=== PATIENT | female | born 1950 | race Caucasian/White ===

== ENCOUNTER 2017-10-22 13:48 | Inpatient (IN) | payer MEDICARE ==
[2017-10-22 14:28] LABS: Hematocrit 22.9 % (36.0-47.0); Mean Platelet Volume 6.2 fL (7.4-10.4); Red Blood Cell (RBC) Count 2.07 mill/uL (4.20-5.40); White Blood Cell (WBC) Count 9.8 thou/uL (4.8-10.8)
--- NOTE | 2017-10-22 14:35 | RAD ---
PORTABLE UPRIGHT FRONTAL CHEST RADIOGRAPH: Date: 10-22-17 Comparison: 12-18-16 History: Swelling. Peritoneal dialysis. FINDINGS: Heart and mediastinal contours are stable. No pneumothorax, pleural fluid, focal consolidation, or al veolar edema. IMPRESSION: Stable appearance of the chest. No acute findings. POS: [facility]
[2017-10-22 14:37] LABS: Lactic Acid - Sepsis 2.8 mmol/L (0.5-2.2)
[2017-10-22 14:39] LABS: ALT (SGPT) 142 U/L (8-55); AST (SGOT) 109 U/L (5-34); Alkaline Phosphatase 144 U/L (40-150); Anion Gap 17 mmol/L (10-20); BUN (Urea Nitrogen) 55 mg/dL (9.8-20.1); Bilirubin, Total 0.4 mg/dL (0.2-1.2); Calc. Creatinine Clearance 0 mL/min (70-130); Calcium 10.4 mg/dL (7.8-10.44); Carbon Dioxide 25 mmol/L (23-31); Chloride 94 mmol/L (98-107); Estimated GFR-MDRD 6; Globulin 3.4 g/dL (2.4-3.5); Protein, Total 6.5 g/dL (6.0-8.3)
[2017-10-22 14:39] LABS: Bilirubin Small (Negative); Blood, Urine Large (Negative); Glucose, Urine (Dipstick) 250 mg/dL (Negative); Ketone, Urine Negative (Negative); Nitrite Negative (Negative); Protein, Urine (Dipstick) 300 mg/dL (Neg-Trace); Urobilinogen 0.2 mg/dL (0.2-1.0)
[2017-10-22 14:41] LABS: Squamous Epithelial 0-3 HPF (0-3)
[2017-10-22 14:51] LABS: #Eosinphils 0.1 thou/uL (0.0-0.7); #Lymphocytes 0.6 thou/uL (1.20-3.40); #Monocytes 0.5 thou/uL (0.11-0.59); #Neutrophils 8.6 thou/uL (1.40-6.50); %Basophils 0.2 % (0.0-1.0); %Eosinophils 1.2 % (0.0-10.0); %Lymphocytes 5.8 % (21.0-51.0); %Monocytes 4.6 % (0.0-10.0); Anisocytosis SLIGHT = 6-15 cells (100X) (0-5/hpf); Hypochromia SLIGHT = 6-15 cells (100X) (0-5/hpf)
[2017-10-22 14:54] LABS: Bacteria/HPF 2+ HPF (None Seen); Hyaline Casts/LPF NONE SEEN LPF (0-3 Hyaline); Yeast-All Forms None Seen HPF (None Seen)
[2017-10-22 14:55] LABS: Transitional Epithelial 0-3 HPF (0-3)
[2017-10-22] MEDS ORDERED: Cefepime 2 GM/10 ML SYR ONE (14:57)
[2017-10-22] MEDS ORDERED: Acetaminophen 500 MG TAB ONE (15:41)
--- NOTE | 2017-10-22 16:40 | PDOC.EVN ---
Event Note - Event Note Event Note: Patient seen and examined. Note dictated. Full code. Makes her own decisions.
--- NOTE | 2017-10-22 17:00 | HP ---
DATE OF ADMISSION: 10/22/2017 PRIMARY CARE PHYSICIAN: Dr. Kaplan PRIMARY REGISTERED SAFETY ENGINEER: Dr. Briggs CHIEF COMPLAINT: Abdominal pain, nausea, and vomiting. HISTORY OF PRESENT ILLNESS: Patient is a 67-year-old female with end-stage renal disease on peritone al dialysis, hypertension, and diabetes mellitus type 2, presented to the emergency room with above c omplaints. Over the last 4-5 days, the patient has abdominal discomfort that is progressively gettin g worse. She also had nausea with intermittent vomiting. She also had fever of 102 earlier this wee k. Abdominal pain was generalized, 9/10, worse on movement. She is constipated and denies any diarr hea. No hematemesis, melena or heartburn reported. She denies any chest pain, shortness of breath o r palpitations. She also noticed her dialysate to be cloudy. In the emergency room, the initial vital signs showed temperature 100.8, respirations 20, pulse rate of 117 with a blood pressure 132/93 with O2 saturation 98% on room air. LABORATORY DATA AND X-RAY FINDINGS: Her CBC showed WBC 9.8 with left shift. Lactic acid was 2.8. U rinalysis showed greater than 50 WBCs with 2+ bacteria. Chest x-ray was negative for infiltrate. Te lemetry monitoring showed sinus tachycardia. She received vancomycin and cefepime along with Tylenol in the emergency room. Nephrology has been notified. PAST MEDICAL HISTORY: 1. Diabetes mellitus type 2. 2. Hypertension. 3. End-stage renal disease on peritoneal dialysis. 4. Degenerative joint disease. 5. Chronic anemia secondary to renal insufficiency. 6. Gout. 7. Dyslipidemia. 8. History of renal calculi. PAST SURGICAL HISTORY: 1. Multiple orthopedic surgeries. 2. Peritoneal dialysis access. 3. Bladder lift. 4. . 5. Hysterectomy. ALLERGIES: The patient is allergic to CODEINE, HYDROCODONE, and SULFA. CURRENT HOME MEDICATIONS: Unavailable at this time, patient does not remember any of her home medica tions. SOCIAL HISTORY: Patient currently lives at home with her family. Denies any smoking, alcohol or tj g use. FAMILY HISTORY: Positive for diabetes in several family members. REVIEW OF SYSTEMS: The following complete review of systems was negative, unless otherwise mentioned in the HPI or below: Constitutional: Weight loss or gain, ability to conduct usual activities. Skin: Rash, itching. Ey es: Double vision, pain. ENT/Mouth: Nose bleeding, neck stiffness, pain, tenderness. Cardiovascul ar: Palpitations, dyspnea on exertion, orthopnea. Respiratory: Shortness of breath, wheezing, coug h, hemoptysis, fever or night sweats. Gastrointestinal: Poor appetite, abdominal pain, heartburn, n ausea, vomiting, constipation, or diarrhea. Genitourinary: Urgency, frequency, dysuria, nocturia. Musculoskeletal: Pain, swelling. Neurologic/Psychiatric: Anxiety, depression. Allergy/Immunologic : Skin rash, bleeding tendency. PHYSICAL EXAMINATION: VITAL SIGNS: As discussed above. GENERAL: A 67-year-old female in mild distress due to abdominal discomfort. She is also somewhat sl eepy and slowly responding. HEENT: Head atraumatic, normocephalic. Sclerae anicteric. Moist mucous membranes. No oral lesion. NECK: Supple, no JVD appreciated. No carotid bruit. LUNGS: Clear to auscultation bilaterally. HEART: S1, S2 present. Tachycardic. No rubs or gallops appreciated. No heaves or pulsation. ABDO MEN: Soft, there is generalized tenderness on superficial palpation. No discharge around the dialys is catheter noted. There was voluntary guarding. There was no rigidity. There was no flank tendern ess. EXTREMITIES: Trace edema in bilateral lower extremities. SKIN: Warm and dry. LYMPH NODES: No palpable lymph nodes in the neck. PERIPHERAL VASCULAR: Radial pulses palpable bilaterally. MUSCULOSKELETAL: No joint swelling or tenderness. NEUROLOGIC: Grossly nonfocal. The patient is somewhat slow to respond. However, answers appropriat meagan. PSYCHIATRY: As discussed above. SKIN: Warm and dry. LYMPH NODES: No palpable lymph nodes in the neck. LABORATORY FINDINGS: As discussed above. Sodium was 132, potassium 4.1, chloride of 94, bicarbonate 25. Blood culture, urine cultures have been sent. Repeat lactic acid has been ordered. Telemetry monitoring by my review as discussed above. Chest x-ray by my review as discussed above. IMPRESSION AND PLAN: 1. Sepsis with an acute organ dysfunction secondary to peritoneal dialysis associated peritonitis. 2. End-stage renal disease on peritoneal dialysis. 3. Lactic acidosis. 4. Abnormal liver function tests, probably secondary to sepsis. 5. Anemia secondary to end-stage renal disease. 6. Diabetes mellitus type 2. 7. Hypertension. 8. Dyslipidemia. 9. Gout. 10. CODEINE, HYDROCODONE, and SULFA allergy. 11. Urinary tract infection. The patient will be monitored in the telemetry unit. We will continue empiric antibiotics. Nephrolo gy will be consulted. We will send cultures from the dialysis fluid. Urine cultures also has been s ent. We will resume home medications once confirmed. Gentle intravenous hydration. Plan of care was discussed with the patient. She stated understanding. The patient will require 2-3 days for stabilization.
[2017-10-22] MEDS ORDERED: Ondansetron ODT 4 MG TAB SL PRN (17:52)
[2017-10-22] MEDS ORDERED: Ondansetron HCl/PF 4 MG/2 ML Vial IVP PRN ×2 (17:52→17:55)
[2017-10-22] MEDS ORDERED: Vancomycin HCl 1 GM in Premix Bag 1 BAG IVPB SCH ×2 (17:55→18:15)
[2017-10-22] MEDS ORDERED: Acetaminophen 325 MG TAB PO PRN (17:55)
[2017-10-22] MEDS ORDERED: Ondansetron ODT 4 MG TAB PO PRN (17:55)
[2017-10-22] MEDS ORDERED: Dextrose 5% in Water 1,000 ML IV PRN (17:55)
[2017-10-22] MEDS ORDERED: Insulin Regular 300 UNITS/3 ML VIAL SC PRN ×2 (17:55)
[2017-10-22] MEDS ORDERED: Senokot 8.6 MG TAB PO PRN (17:55)
[2017-10-22] MEDS ORDERED: Calcium Carbonate 500 MG ChewTAB PO PRN (17:55)
[2017-10-22] MEDS ORDERED: Dextrose 50% Abboject 50 ML SYRINGE SLOW IVP PRN (17:55)
[2017-10-22] MEDS ORDERED: Nitroglycerin 0.4 MG TAB (25 Tab Bottle) PO PRN (17:55)
[2017-10-22] MEDS ORDERED: Vancomycin HCl 500 MG in Sodium Chloride 0.9% 100 ML IVPB SCH (18:15)
[2017-10-22] MEDS ORDERED: HOLD VANCOMYCIN FOR LEVEL >20 FS SCH (18:15)
[2017-10-22] MEDS ORDERED: Vancomycin HCl 750 MG in Sodium Chloride 0.9% 250 ML 250 ML IVPB SCH (18:15)
[2017-10-22] MEDS ORDERED: Vancomycin HCl 1.25 GM in Sodium Chloride 0.9% 250 ML 250 ML IVPB SCH (18:15)
[2017-10-22] MEDS ORDERED: traMADol HCl 50 MG TAB PO PRN (20:39)
[2017-10-22] MEDS ORDERED: NPH, Human Insulin Isophane 300 UNIT/3 ML VIAL SC SCH (21:00)
[2017-10-22] MEDS: Docusate 100 MG CAP PO SCH (21:49)
[2017-10-22] MEDS: Cefepime 1 GM in Sodium Chloride 0.9% 100 ML IVPB SCH (21:52)
[2017-10-22] MEDS: Atorvastatin Calcium 20 MG TAB PO SCH (21:52)
[2017-10-22] MEDS: Heparin 5,000 UNITS/ML VIAL SC SCH (21:52)
--- NOTE | 2017-10-23 05:52 | CON ---
DATE OF CONSULTATION: 10/22/2017 REASON FOR CONSULTATION: Stage 6 chronic kidney disease, on maintenance peritoneal dialysis. HISTORY OF PRESENT ILLNESS: This is a 67-year-old female who is basically showed up for abdominal pain and weakness, who was admitted for possible peritonitis. The patient has had no cell count down, but is having abdominal pain and weakness and had noticed her dialysis . PAST MEDICAL AND SURGICAL HISTORY: Significant for diabetes mellitus, hypertension, ESRD, degenerative joint disease, anemia, history of renal calculi , orthopedic surgery, PD dialysis catheter, bladder lift, and hysterectomy. HOME MEDICATIONS: List reviewed. ALLERGIES: Reviewed. FAMILY HISTORY: Negative for ESRD. REVIEW OF SYSTEMS: Fifteen-point review of systems was performed and negative except positives as noted above. GENERAL: Weakness-. HEAD: Headache-. NECK: No swelling or lumps. NOSE: No epistaxis or discharge. EYES: No diplopia or pain. RESPIRATORY: Dyspnea-. CARDIOVASCULAR: Chest pain-. GASTROINTESTINAL: Nausea-. /[employer]INTE[employer]NCE: Hematuria-. MUSCULOSKELETAL: No joint pain. NEUROPSYCHIATRIC SYSTEMS: No suicidal ideation. No ideation. SKIN: Denies any rash or ulcer. CONSTITUTIONAL: No fever or chills PHYSICAL EXAMINATION: GENERAL: Patient is awake and alert. VITAL SIGNS: Afebrile, pulse 118, breathing at 16 and blood pressure 147/64. HEAD/NECK: Normocephalic. Atraumatic. EYES: EOMI. No deformity. EARS: Clear. No ulcers. NOSE: Intact. No lesions. MOUTH: Clear. No discharge. THROAT: Clear. No exudate. LUNGS: Clear. No crackles. CARDIAC: S1, S2. No rub. ABDOMEN: Benign. BS+. GENITALIA/RECTUM: Rai absent. BACK/EXTREMITIES: Edema 0+. Ulcer-. NEUROLOGICAL: Alert and motor intact. SKIN: Rash-. Bruise-. LYMPHATICS: Edema-. Ulcer-. LABORATORY DATA: Showed a WBC of 9.8 and hemoglobin 9.2. Urinalysis showed multiple too numerous to count wbc's. PD Gram stain negative for bacteria, positive for WBC. ASSESSMENT AND RECOMMENDATIONS: 1. Stage 6 chronic kidney disease. Continue peritoneal dialysis. 2. Peritonitis versus urinary tract infection. We would recommend cell count as well as a urine culture and will treat as presumptive peritonitis and complicated urinary tract infection. 3. Anemia. We would recommend 1 unit of packed red blood cells. 4. Hypertension, stable. 5. Medications based on glomerular filtration rate are appropriate. I would recommend Infectious Disease consultation. MTDD
[2017-10-23 06:08] LABS: ALT (SGPT) 178 U/L (8-55); AST (SGOT) 158 U/L (5-34); Alkaline Phosphatase 130 U/L (40-150); Anion Gap 13 mmol/L (10-20); BUN (Urea Nitrogen) 51 mg/dL (9.8-20.1); Bilirubin, Total 0.4 mg/dL (0.2-1.2); Calc. Creatinine Clearance 11 mL/min (70-130); Calcium 9.4 mg/dL (7.8-10.44); Carbon Dioxide 27 mmol/L (23-31); Chloride 95 mmol/L (98-107); Estimated GFR-MDRD 7; Globulin 2.6 g/dL (2.4-3.5); Protein, Total 4.9 g/dL (6.0-8.3)
[2017-10-23 06:12] LABS: #Eosinphils 0.1 thou/uL (0.0-0.7); #Lymphocytes 0.5 thou/uL (1.20-3.40); #Monocytes 0.4 thou/uL (0.11-0.59); #Neutrophils 3.5 thou/uL (1.40-6.50); %Basophils 0.2 % (0.0-1.0); %Eosinophils 3.2 % (0.0-10.0); %Lymphocytes 10.5 % (21.0-51.0); %Monocytes 9.1 % (0.0-10.0); Hematocrit 17.3 % (36.0-47.0); Mean Platelet Volume 6.4 fL (7.4-10.4); Red Blood Cell (RBC) Count 1.58 mill/uL (4.20-5.40); White Blood Cell (WBC) Count 4.5 thou/uL (4.8-10.8)
[2017-10-23 08:01] LABS: BF Reference Range Comment Note:
[2017-10-23] MEDS ORDERED: Famotidine 20 MG TAB PO SCH (09:00)
[2017-10-23] MEDS ORDERED: NPH, Human Insulin Isophane 300 UNIT/3 ML VIAL SC SCH (09:00)
[2017-10-23] MEDS ORDERED: Allopurinol 300 MG TAB PO SCH (09:00)
[2017-10-23 09:39] LABS: BF Color Yellow
[2017-10-23 09:41] LABS: RBC Count-Automated 28000 /cumm
[2017-10-23] MEDS: Cefepime 1 GM in Sodium Chloride 0.9% 100 ML IVPB SCH ×2 (09:41→20:05)
[2017-10-23] MEDS: Sevelamer Carbonate 800 MG TAB PO SCH ×3 (09:42→16:40)
[2017-10-23] MEDS: Docusate 100 MG CAP PO SCH ×2 (09:42→20:06)
[2017-10-23] MEDS: Heparin 5,000 UNITS/ML VIAL SC SCH (09:43)
[2017-10-23] MEDS: Folic Acid/Vit B Comp W-C PO SCH (09:43)
[2017-10-23 10:29] LABS: Number Cells Counted-Fluids 100
[2017-10-23] MEDS ORDERED: Epoetin (ESRD) 20,000 UNITS/ML SC SCH (11:00)
[2017-10-23 12:06] LABS: Vancomycin, Random 14.4 ug/mL (See Comment)
[2017-10-23] MEDS ORDERED: Dextrose 50% Abboject 50 ML SYRINGE ONE (15:26)
--- NOTE | 2017-10-23 15:26 | PDOC.PN ---
- Subjective Encounter Start Date: 10/23/17 Encounter Start Time: 11:00 Patient seen and examined. No new complaints. No overnight events. Abd pain improving. No melena/hematochezia. - Objective Resuscitation Status: Resuscitation Status FULL:Full Resuscitation MAR Reviewed: Yes Vital Signs & Weight: Vital Signs (12 hours) Temp Pulse Resp BP Pulse Ox 10/23/17 12:25 98.6 F 71 18 140/65 96 10/23/17 08:00 98.6 F 71 18 135/63 94 L 10/23/17 04:00 98.2 F 80 18 100/50 L 95 Weight Weight 160 lb 9.6 oz I&O: 10/22/17 10/23/17 10/24/17 06:59 06:59 06:59 Intake Total 100 Output Total 1 Balance 99 Result Diagrams: 10/23/17 05:27 10/23/17 05:27 Additional Labs: Accuchecks 10/23/17 10/23/17 10/23/17 12:20 05:47 02:26 POC Glucose 53 L* 178 H 216 H 10/22/17 20:11 POC Glucose 340 H EKG Reviewed by me: Yes (Tele SR) Phys Exam - Physical Examination Constitutional: NAD Respiratory: no wheezing, no rales, no rhonchi, clear to auscultation bilateral Cardiovascular: RRR, no rub no heaves/pulsations Gastrointestinal: soft, no distention, positive bowel sounds mild gen tend, PD catheter Musculoskeletal: no edema Neurological: non-focal, normal sensation, moves all 4 limbs Psychiatric: normal affect, A&O x 3 Dx/Plan - Plan cont current plan of care, continue antibiotics, PT/OT, DVT proph w/SCDs IMPRESSION: 1. Sepsis with an acute organ dysfunction secondary to peritoneal dialysis associated peritonitis - Staph - on Atbx 2. End-stage renal disease on peritoneal dialysis. Nephro following 3. Lactic acidosis. prob due to sepsis 4. Abnormal liver function tests, probably secondary to sepsis. 5. Anemia secondary to end-stage renal disease. Jehovahs witness. Stool occult blood negative. 6. Diabetes mellitus type 2. on sliding scale. 7. Hypertension. 8. Dyslipidemia. 9. Gout. 10. CODEINE, HYDROCODONE, and SULFA allergy. 11. Urinary tract infection. PLAN: * Refuses blood. Understands the risk. Has seen Dr Martin recently - refused EGD * Will change diet to clear liqd * Consult ID * Cont Vanc/Cefepime * Cont sliding scale * Cont to monitor * Consult PT/OT * DC SQ Heparin due to Anemia * AM labs * Repeat Lactic acid in AM Review of Systems - Review of Systems Constitutional: negative: Fever, Chills, Sweats, Weakness, Malaise, Other Respiratory: negative: Cough, Dry, Shortness of Breath, Hemoptysis, SOB with Excertion, Pleuritic Pain, Sputum, Wheezing Cardiovascular: negative: Chest Pain, Palpitations, Orthopnea, Paroxysmal Noc. Dyspnea, Edema, Light Headedness - Medications/Allergies Allergies/Adverse Reactions: Allergies Allergy/AdvReac Type Severity Reaction Status Date / Time No Known Allergies Allergy Verified 10/23/17 07:12 Medications: Current Medications Acetaminophen (Tylenol) 650 mg PO Q4H PRN PRN Reason: Headache/Fever or Pain Allopurinol (Zyloprim) 100 mg PO DAILY [facility] Atorvastatin Calcium (Lipitor) 20 mg PO [facility] Last Admin: 10/22/17 21:52 Dose: 20 mg Calcium Carbonate (Tums) 1,000 mg PO Q4H PRN PRN Reason: Heartburn or Indigestion Dextrose/Water (Dextrose 50%) 25 gm SLOW IVP PRN PRN PRN Reason: Hypoglycemia Docusate Sodium (Colace) 100 mg PO BID [facility] Last Admin: 10/23/17 09:42 Dose: 100 mg Duloxetine HCl (Cymbalta) 30 mg PO DAILY [facility] Last Admin: 10/23/17 09:42 Dose: 30 mg Ferrous [facility]) [facility] Glucagon (Glucagon) 1 mg IM PRN PRN PRN Reason: Hypoglycemia Hydralazine HCl (Apresoline) 10 mg SLOW IVP Q4H PRN PRN Reason: SBP Greater Than 180 Cefepime HCl 1 gm/ Sodium (Chloride) 100 mls @ 200 mls/hr IVPB 0800,2000 [facility] Last Admin: 10/23/17 09:41 Dose: 100 mls Dextrose/Water (D5w) 1,000 mls @ 0 mls/hr IV .Q0M PRN; As Directed PRN Reason: Hypoglycemia Vancomycin HCl 1.25 gm/ Sodium (Chloride) 250 mls @ 166.667 mls/hr IVPB WILLCALL [facility] Vancomycin HCl 1 gm/ Device 200 mls @ 200 mls/hr IVPB [facility] Vancomycin HCl 750 mg/ Sodium (Chloride) 250 mls @ 250 mls/hr IVPB [facility] Vancomycin HCl 500 mg/ Sodium (Chloride) 100 mls @ 100 mls/hr IVPB [facility] Insulin Human Regular (Humulin R) 0 units SC .MILD SLIDING SCALE PRN PRN Reason: Mild Correctional Scale Insulin Human Regular (Humulin R) 0 units SC .BEDTIME SLIDING SC PRN PRN Reason: Bedtime Correctional Scale Labetalol HCl (Normodyne) 10 mg SLOW IVP Q4H PRN PRN Reason: Systolic BP > 180 Miscellaneous Medication (Pharmacy To Dose) 1 each IVPB ONE PRN PRN Reason: Pharmacy to dose Stop: 11/21/17 17:56 Nitroglycerin (Nitrostat) 0.4 mg PO Q5MIN PRN PRN Reason: Chest Pain Hold Vancomycin For (Level >20) 0 each FS .AT DIALYSIS [facility] Ondansetron HCl (Zofran Odt) 4 mg PO Q6H PRN PRN Reason: Nausea/Vomiting Ondansetron HCl (Zofran) 4 mg IVP Q6H PRN PRN Reason: Nausea/Vomiting Senna (Senokot) 2 tab PO HSPRN PRN PRN Reason: Constipation Sevelamer Carbonate (Renvela) 1,600 mg PO TID-[facility] Last Admin: 10/23/17 12:16 Dose: 1,600 mg Tramadol HCl (Ultram) 50 mg PO Q6H PRN PRN Reason: Moderate Pain (4-6) Vitamin B Complex/Vit C/Folic Acid (Nephro-Kwan Tablet) 1 tab PO DAILY [facility] Last Admin: 10/23/17 09:43 Dose: 1 tab
[2017-10-23] MEDS ORDERED: Dextrose 5 % And 0.9 % NaCl 1,000 ML IV SCH (16:00)
[2017-10-23] MEDS: Ferrous Sulfate 325 MG TAB PO SCH (16:40)
--- NOTE | 2017-10-23 17:36 | PRG ---
DATE OF SERVICE: 10/23/2017 SUBJECTIVE: This is a 67-year-old female, being seen for end-stage renal disease. Patient denies an y nausea, vomiting, or chest pain. OBJECTIVE: See above. GENERAL: Awake, alert, in no acute distress. VITAL SIGNS: Afebrile, pulse 84, breathing at 16, blood pressure 135/62. GENERAL APPEARANCE AND MENTAL STATUS: Fair. HEAD/NECK: Normocephalic. Atraumatic. EYES: EOMI. No deformity. EARS: Clear. No ulcers. NOSE: Intact. No lesions. MOUTH: Clear. No discharge. THROAT: Clear. No exudate. LUNGS: Clear. No crackles. CARDIAC: S1, S2. No rub. ABDOMEN: Benign. BS+. GENITALIA/RECTUM: Rai absent. BACK/EXTREMITIES: Edema 0+ ulcer. NEUROLOGICAL: Alert and motor intact. SKIN: Rash - bruise. LYMPHATICS: Edema - ulcer. LABORATORY DATA: Labs show hemoglobin 5.3. ASSESSMENT AND RECOMMENDATIONS: 1. Stage 6 chronic kidney disease. peritonitis. We will give vancomycin during peritoneal di alysis. 2. Anemia. I would recommend transfusion. The patient told me that she is [employer], so woods s refused transfusion. 3. Hypertension, stable. 4. Sepsis. I would recommend Infectious Disease consultation.
[2017-10-23] MEDS: Atorvastatin Calcium 20 MG TAB PO SCH (20:05)
[2017-10-24 05:36] LABS: Hematocrit 19.8 % (36.0-47.0)
[2017-10-24] MEDS: Ferrous Sulfate 325 MG TAB PO SCH ×3 (08:46→17:15)
[2017-10-24] MEDS: Allopurinol 100 MG TAB PO SCH (08:46)
[2017-10-24] MEDS: Docusate 100 MG CAP PO SCH ×2 (08:46→21:15)
[2017-10-24] MEDS: Folic Acid/Vit B Comp W-C PO SCH (08:46)
[2017-10-24] MEDS: Sevelamer Carbonate 800 MG TAB PO SCH ×3 (08:53→16:21)
[2017-10-24 09:25] LABS: Vancomycin, Random 22.3 ug/mL (See Comment)
[2017-10-24] MEDS: Cefepime 1 GM in Sodium Chloride 0.9% 100 ML IVPB SCH (10:06)
--- NOTE | 2017-10-24 11:55 | PRG ---
DATE OF SERVICE: 10/24/2017 SUBJECTIVE: This is a 67-year-old female being seen for end-stage renal disease. The patient denies any nausea, vomiting or chest pain. PHYSICAL EXAMINATION: GENERAL: Patient is awake, alert. VITAL SIGNS: Afebrile, pulse 78, breathing 16, blood pressure 149/73. HEAD/NECK: Normocephalic. Atraumatic. EYES: EOMI. No deformity. EARS: Clear. No ulcers. NOSE: Intact. No lesions. MOUTH: Clear. No discharge. THROAT: Clear. No exudate. LUNGS: Clear. No crackles. CARDIAC: S1, S2. No rub. ABDOMEN: Benign. BS+. GENITALIA/RECTUM: Rai absent. BACK/EXTREMITIES: Edema 0+ Ulcer- NEUROLOGICAL: Alert and motor intact. SKIN: Rash- Bruise- LYMPHATICS: Edema- Ulcer- LABORATORY DATA: Show hemoglobin 6.9. ASSESSMENT AND RECOMMENDATIONS: 1. Stage 6 chronic kidney disease. Continue peritoneal dialysis. 2. Peritonitis management per Infectious Disease. 3. Anemia, diffuse transfusion. Continue Epogen. 4. Peritonitis, on vancomycin IV. 5. Sliding scale per primary team.
--- NOTE | 2017-10-24 12:32 | PRG ---
DATE OF SERVICE: 10/24/2017 SUBJECTIVE: The patient was seen and examined at bedside. She is slightly drowsy, she keeps her eye s closed during my visit. She states that her mouth is quite dry, but that is most of the time even before this hospitalization. She does not know what is the reason. She tolerates clear liquids well without any vomiting. OBJECTIVE: VITAL SIGNS: Blood pressure is 149/73, temperature is 98.6, pulse is 78, respiratory rate is 20, O2 saturation is 94% on room air. SKIN: Her skin is pale. HEENT: Conjunctivae pale. Pupils responding to light properly. Oral mucosa is dry. NECK: Supple. LUNGS: Clear. HEART: S1, S2 normal. No S3, no S4. ABDOMEN: Tender to palpation, superficial. Bowel sounds are present. EXTREMITIES: 1+ peripheral edema, symmetric bilaterally. NEUROLOGIC: She follows my commands, she knows that she is at [facility]. She does not know the monique e and month. She knows where she lives and she is expecting her to come and see her in the h ospital this morning. LABORATORY: Showed vancomycin level 22.3, hemoglobin 6.3, hematocrit 19.8, and platelet count is 299 . Glucose is 160. Lactic acid is 1.8. Microbiology is growing Enterococcus in urine, 25-50,000 and Staphylococcus aureus in peritoneal fluid culture, susceptibility to follow. Blood cultures are neg ative x2. IMPRESSION: 1. Acute Staphylococcal peritonitis secondary to most likely peritoneal dialysis. 2. Sepsis with negative blood cultures so far. 3. Lactic acidosis, resolved. 4. Anemia secondary to end-stage renal disease. The patient was offered blood transfusion, but she refused it since she is a [employer]. Her fecal occult blood test was negative. 5. Diabetes mellitus type 2, controlled. 6. Hypertension, controlled. 7. Dyslipidemia. 8. Gout. 9. Urine culture positive for Enterococcus 25-50,000 colonies. PLAN: The patient refused blood transfusion. Her hemoglobin is slightly better this morning, it is about 5. Actually she states that she feels better today than yesterday. She did not have any nause a or vomiting on clear liquids. I am going to give her some full liquid diet and see how she tolerat es that. We continue her vancomycin and cefepime for now. Will have Dr. Lisa to evaluate the patie nt for ID. We will continue close monitoring. We will continue PT and OT. I am going to order morn ing labs.
--- NOTE | 2017-10-24 13:43 | CON ---
DATE OF CONSULTATION: 10/24/2017 REASON FOR CONSULTATION: CAPD associated peritonitis. HISTORY OF PRESENT ILLNESS: A 67-year-old patient who has a history of type 2 diabetes with end-stag e renal disease and gout undergoing peritoneal dialysis since 2014. I had seen her in 10/2015 when s he presented with peritonitis. Unfortunately, cultures had not been submitted prior to the administr ation of antimicrobials, though the 1 sample submitted in the hospital setting was negative. In 12/02 017 the patient was admitted with a left intertrochanteric femur fracture and underwent a nail insert ion. This time she presents with abdominal pain, nausea, and vomiting, and fever. Pain was generali zed. She denied any headaches, no change in visual symptoms, sore throat, odynophagia, dysphagia. N o respiratory symptoms, no chest pain, no genitourinary symptoms, no joint symptoms. PAST MEDICAL HISTORY: Type 2 diabetes, hypertension, end-stage renal disease. She does have multipl e cysts in a previous imaging study which were somewhat suggestive of PKD, peritoneal dialysis since 2014 and 1 prior episode of peritonitis with negative cultures at that time, gout, and nephrolithiasi s. PAST SURGICAL HISTORY: Orthopedic procedures including pinning of the left hip fracture, peritoneal dialysis access placement, bladder lift, , hysterectomy. ALLERGIES: CODEINE, HYDROCODONE, SULFA DRUGS. SOCIAL HISTORY: Living at home. Never a smoker. FAMILY HISTORY: Diabetes type 2. CURRENT MEDICATIONS: Zyloprim, Lipitor, Tums, cefepime, dextrose, Cymbalta, Feosol, Humulin, Senokot , vancomycin. PHYSICAL EXAMINATION: VITAL SIGNS: T-max 99, currently 98.8, blood pressure 160/73, pulse 92, respirations 18, O2 sat 94%. GENERAL: She is a little bit encephalopathic. She is arousable. She knows her name and knew she wa s in the hospital and the correct name the hospital, but gave me the wrong date. Follows commands wi th some assistance. SKIN: She has a stage I-II pressure area in the presacral region, mostly erythema only. No Rai ca theter. She has a peripheral IV access. PD catheter exit site in the left lower quadrant with no ev idence of inflammatory changes. No lymphadenopathy. HEENT: Ocular movements are conjugate. Oral cavity with no remaining red cliff teeth. Oral mucosa nor mal. NECK: Supple, no jugular venous distention. LUNGS: With symmetric clear breath sounds. HEART: S1, S2, regular rate. Soft aortic murmur. ABDOMEN: Flat, soft. Not tender, not distended. No bladder distention. EXTREMITIES: No joint inflammatory activity. Pulses are 1+ in dorsalis pedis. NEUROLOGIC: Plantar responses are flexor. Trace edema lower extremities. She is drowsy, arousable, but and follow commands with insistence, a little bit disoriented. She has some degree of hypoactiv e delirium. LABORATORY DATA: White cell count 9.8 and 4.5, hemoglobin 7.2 and 5.3, platelets 361. Chemistry wit h sodium 132, potassium 3.4, creatinine 5.85. Lactic acid 1.8, AST 158, ALT 178, alkaline phosphatas e 130, bilirubin 0.4, albumin 2.3. Peritoneal dialysis fluid with 25,000 WBCs and a predominance of mature neutrophils. Cultures from the peritoneal dialysis with Staphylococcus aureus which is methic illin sensitive, by phenotype testing. ASSESSMENT: 1. Diabetes type 2. 2. Multiple kidney cysts. 3. Prior episode of peritonitis about 2 years ago, treated successfully. 4. 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 DISCUSSION: At this point, there is no evidence of tunnel infection, failure of conservative managem ent of Staphylococcal aureus CAPD peritonitis is higher than with other pathogens, but I think we misty uld continue with conservative management. Would recommend vancomycin which would allow less frequen t administrations of the treatment. An alternate approach would be cefazolin. The dosing for interm ittent administration of cefazolin through the peritoneal dialysis fluid is 15-20 mg/kg daily given i ntermittently at each dwell, the dose for vancomycin is 15-30 mg/kg every 5-7 days. Evidently the va ncomycin administration schedule would be simpler since it would require less frequent mixing of the antimicrobial with the PD dwell. I would in addition to that recommend rifampin orally 300 mg twice daily during the course of therapy. Duration of therapy would be 21 days. If after that there is re currence or persistence of the CAPD associated peritonitis, then she would require removal of the cat heter.
[2017-10-24] MEDS ORDERED: Primidone 50 MG TAB PO SCH (21:00)
[2017-10-24] MEDS: Atorvastatin Calcium 20 MG TAB PO SCH (21:14)
[2017-10-24] MEDS: Cefepime 1 GM, Admixture Fee 1 EACH in Sterile Water 10 ML SLOW IVP SCH (21:15)
[2017-10-24] MEDS: Rifampin 300 MG CAP PO SCH (21:21)
[2017-10-25] MEDS: Cefepime 1 GM in Sodium Chloride 0.9% 100 ML IVPB SCH (06:31)
[2017-10-25 08:50] LABS: Vancomycin, Random 19.9 ug/mL (See Comment)
[2017-10-25] MEDS: Sevelamer Carbonate 800 MG TAB PO SCH ×4 (09:15→18:51)
[2017-10-25] MEDS: Cefepime 1 GM, Admixture Fee 1 EACH in Sterile Water 10 ML SLOW IVP SCH ×2 (09:52→22:33)
[2017-10-25 10:51] LABS: Anion Gap 14 mmol/L (10-20); BUN (Urea Nitrogen) 47 mg/dL (9.8-20.1); Calc. Creatinine Clearance 10 mL/min (70-130); Calcium 9.2 mg/dL (7.8-10.44); Carbon Dioxide 26 mmol/L (23-31); Chloride 96 mmol/L (98-107); Estimated GFR-MDRD 6
[2017-10-25] MEDS: Sodium Chloride 0.9% 1,000 ML IV SCH (11:23)
[2017-10-25] MEDS: Folic Acid/Vit B Comp W-C PO SCH ×2 (11:26→12:27)
[2017-10-25] MEDS: Docusate 100 MG CAP PO SCH ×3 (11:26→21:45)
[2017-10-25] MEDS: Ferrous Sulfate 325 MG TAB PO SCH ×3 (11:26→18:50)
[2017-10-25] MEDS: Allopurinol 100 MG TAB PO SCH ×2 (11:26→12:27)
[2017-10-25] MEDS: Rifampin 300 MG CAP PO SCH ×3 (11:27→21:45)
--- NOTE | 2017-10-25 13:58 | PRG ---
DATE OF SERVICE: 10/25/2017 SUBJECTIVE: The patient is seen and examined at the bedside. She is very drowsy. She is arousable, but she falls asleep very quickly soon after she opens her eyes when awake. She is not able to tell me where she lives and where she is now. She tries to follow commands, but drowsiness is affecting her movement and she falls asleep quickly. OBJECTIVE: SKIN: Pale. HEENT: Conjunctivae is pale. Pupils in the midline about 3 mm in size, similar bilaterally with ilene e good response to light. NECK: Supple. LUNGS: Clear. HEART: S1, S2 normal, no S3, no S4, no murmur. ABDOMEN: Soft but it is somewhat tender to palpation all over. No guarding. No masses. EXTREMITIES: No clubbing, cyanosis, or edema. NEUROLOGIC: As I mentioned above, she is drowsy. She is arousable, but falls asleep quickly. She m oves 4 extremities. Her Babinski sign on both lower extremities is negative. LABORATORY DATA: Showed a random vancomycin level 19.9, glycemia is ranging from 80-142. Microbiolo gy: Staphylococcus aureus, methicillin sensitive in peritoneal fluid and Enterococcus, 25,000-50,000 colonies in the urine. Blood cultures negative x48 hours. IMPRESSION: 1. Acute staphylococcal peritonitis secondary to peritoneal dialysis. Most likely, the patient was seen by Dr. Lisa for Infectious Disease evaluation. He recommends vancomycin or cephalosporin for t his methicillin-sensitive Staphylococcus aureus infection. 2. Sepsis with negative blood cultures. 3. Lactic acidosis, resolved. 4. Anemia secondary to end-stage renal disease. The patient was offered blood transfusion, but she is a Taoism and she refused that. Fecal occult blood test was negative. 5. Diabetes mellitus type 2, well controlled. 6. Hypertension, controlled. 7. Dyslipidemia. 8. Drowsiness. I am going to check her primidone and phenobarbital levels and I am holding her prim idone for now, most likely this is related to the medications and her encephalopathy. 9. Gout. 10. Urine culture positive for Enterococcus 25,000-50,000 colonies PLAN: According to Dr. Lisa' recommendation, we will keep her on vancomycin for now. Rifampicin 30 0 mg twice a day was added and duration of therapy is supposed to be 21 days. We will start physical therapy as soon as her mentation is better and cefepime could not be stopped.
--- NOTE | 2017-10-25 14:13 | PRG ---
DATE OF SERVICE: 10/25/2017 SUBJECTIVE: A 67-year-old female being seen for end-stage renal disease. The patient tolerated PD well. Denies any nausea, vomiting, or chest pain. PHYSICAL EXAMINATION: GENERAL: Patient is awake, alert. VITAL SIGNS: Afebrile, pulse 93, breathing at 16, blood pressure 159/96. HEAD/NECK: Normocephalic. Atraumatic. EYES: EOMI. No deformity. EARS: Clear. No ulcers. NOSE: Intact. No lesions. MOUTH: Clear. No discharge. THROAT: Clear. No exudate. LUNGS: Clear. No crackles. CARDIAC: S1, S2. No rub. ABDOMEN: Benign. BS+. GENITALIA/RECTUM: Rai absent. BACK/EXTREMITIES: Edema 0+ Ulcer- NEUROLOGICAL: Alert and motor intact. SKIN: Rash- Bruise- LYMPHATICS: Edema- Ulcer- LABORATORY DATA: None. ASSESSMENT AND RECOMMENDATIONS: 1. Stage 6 chronic kidney disease. Continue peritoneal dialysis. 2. Hypertension, stable. 3. Anemia, stable. 4. Medications based on glomerular filtration rate are appropriate. MTDD
--- NOTE | 2017-10-25 15:35 | CT ---
HEAD CT WITHOUT CONTRAST: DATE: 10/25/17. COMPARISON: None. HISTORY: Altered mental status, extreme drowsiness. TECHNIQUE: Serial axial CT imaging is obtained at 5 mm intervals from the vertex through the skull base. FINDINGS: There is a focal area of cortical and subcortical white matter hypodensity in the right frontal regio n at the axial level of the lateral ventricles on image 21, measuring up to 2.8 cm. This suggests ag e-indeterminate ischemia. There is moderate diffuse cerebral volume loss. There is no midline shift /mass effect or evidence of intracranial hemorrhage. Imaged paranasal sinuses and mastoid air cells appear grossly unremarkable. No displaced calvarial f racture. There is atherosclerotic calcification of the cavernous carotid arteries. IMPRESSION: Focal area of nonspecific cortical and subcortical white matter hypodensity in the frontal lobe on th e right. Recommend MRI of the brain with and without contrast to evaluate for associated infarction and/or underlying brain lesion. CODE T POS: DELMAR
--- NOTE | 2017-10-25 21:36 | PDOC.EVN ---
Event Note - Event Note Event Note: called regarding pts decreased LOC and rifampin being held. Pt still on Vanc. On review, pt had a reactive urine now growing VRE and GNR yet to be identified. Added Zyvox and Cefepime at renal dosing.
[2017-10-25] MEDS: Atorvastatin Calcium 20 MG TAB PO SCH (21:44)
[2017-10-25] MEDS ORDERED: Cefepime 1 GM in Sodium Chloride 0.9% 100 ML IVPB SCH (21:45)
[2017-10-25] MEDS: Linezolid 600 MG in Premix Bag 1 BAG IVPB SCH (22:33)
[2017-10-26] MEDS: Sodium Chloride 0.9% 1,000 ML IV SCH ×3 (01:05→18:30)
[2017-10-26] MEDS: hydrALAZINE 20 MG/ML VIAL SLOW IVP PRN (01:06)
[2017-10-26 07:50] LABS: #Eosinphils 0.3 thou/uL (0.0-0.7); #Lymphocytes 0.6 thou/uL (1.20-3.40); #Monocytes 0.4 thou/uL (0.11-0.59); #Neutrophils 6.4 thou/uL (1.40-6.50); %Basophils 0.5 % (0.0-1.0); %Eosinophils 4.1 % (0.0-10.0); %Lymphocytes 7.9 % (21.0-51.0); %Monocytes 5.1 % (0.0-10.0); Hematocrit 21.2 % (36.0-47.0); Mean Platelet Volume 5.8 fL (7.4-10.4); Red Blood Cell (RBC) Count 1.96 mill/uL (4.20-5.40); White Blood Cell (WBC) Count 7.8 thou/uL (4.8-10.8)
[2017-10-26 08:07] LABS: Anion Gap 12 mmol/L (10-20); BUN (Urea Nitrogen) 40 mg/dL (9.8-20.1); Calc. Creatinine Clearance 10 mL/min (70-130); Calcium 8.8 mg/dL (7.8-10.44); Carbon Dioxide 27 mmol/L (23-31); Chloride 99 mmol/L (98-107); Estimated GFR-MDRD 7
[2017-10-26] MEDS ORDERED: Potassium Chloride 20 MEQ/100 ML PREMIX BAG IVPB SCH (08:30)
[2017-10-26 10:13] LABS: Oxyhemoglobin 96.4 % (94.0-97.0); Sodium 134 mmol/L (135-148)
[2017-10-26 10:18] LABS: Mode ROOM AIR; Modified Allen's Test NOT DONE; Vent NO
[2017-10-26] MEDS: Ferrous Sulfate 325 MG TAB PO SCH ×2 (10:18→18:22)
[2017-10-26] MEDS: Sevelamer Carbonate 800 MG TAB PO SCH ×3 (10:18→18:22)
[2017-10-26] MEDS: Allopurinol 100 MG TAB PO SCH (10:19)
[2017-10-26] MEDS: Docusate 100 MG CAP PO SCH ×2 (10:19→20:42)
[2017-10-26] MEDS: Folic Acid/Vit B Comp W-C PO SCH (10:19)
[2017-10-26] MEDS: Rifampin 300 MG CAP PO SCH ×2 (10:20→20:45)
[2017-10-26] MEDS: Linezolid 600 MG in Premix Bag 1 BAG IVPB SCH ×2 (10:29→22:39)
--- NOTE | 2017-10-26 12:59 | PRG ---
DATE OF SERVICE: 10/26/2017 SUBJECTIVE: This is a 67-year-old female being seen for end-stage renal disease. The patient is liene nolent but cannot obey simple commands. PHYSICAL EXAMINATION: GENERAL: Patient is resting. VITAL SIGNS: Temperature 99.2, pulse 92, breathing at 16, blood pressure 143/94. GENERAL APPEARANCE AND MENTAL STATUS: Fair. HEAD/NECK: Normocephalic. Atraumatic. EYES: EOMI. No deformity. EARS: Clear. No ulcers. NOSE: Intact. No lesions. MOUTH: Clear. No discharge. THROAT: Clear. No exudate. LUNGS: Clear. No crackles. CARDIAC: S1, S2. No rub. ABDOMEN: Benign. BS+ GENITALIA/RECTUM: Rai absent. BACK/EXTREMITIES: Edema 0+ Ulcer- NEUROLOGICAL: The patient does not awake. SKIN: Rash- Bruise- LYMPHATICS: Edema- Ulcer- LABORATORY DATA: Hemoglobin is 6.7. ASSESSMENT AND RECOMMENDATIONS: 1. Stage 6 chronic kidney disease. Continue hemodialysis. 2. Hypertension, stable. 3. Anemia, refused transfusion. 4. Hypokalemia. Recommend 20 mEq potassium and recheck potassium again today.
--- NOTE | 2017-10-26 13:24 | PRG ---
DATE OF SERVICE: 10/26/2017 SUBJECTIVE: The patient is seen and examined at the bedside. She is very drowsy, responding to pain ful stimuli. Occasionally, she opens her eyes, but she falls asleep very quickly. Her mental condit ion is worse than she was yesterday and I just talked to her who decided to make her DNR sinc e she has multiple medical problems and now she has overwhelming infection. OBJECTIVE: VITAL SIGNS: Blood pressure is 154/74, pulse is 92, and temperature is 99.1, this is the maximal tem perature, pulse oximetry is 94%, respiratory rate is 20 respirations per minute. HEENT: Her oral mucosa is somewhat dry. NECK: Supple. LUNGS: Clear. HEART: S1, S2 normal, no S3, no S4. ABDOMEN: Soft, mildly tender to deeper palpation. Bowel sounds are present. No organomegaly. EXTREMITIES: 1+ peripheral edema similar bilaterally. NEUROLOGIC: Patient is in deep coma, she responds to painful stimuli. Occasionally, she opens her e yes, but she falls asleep very quickly. She has myoclonic jerks in the upper extremities, but that i s nothing new. According to her , she had this for a long time. SKIN: She has several ecchymoses on both forearms. LABORATORY DATA: White count of 7.8, hemoglobin 6.7, hematocrit 21.2, and platelet count is 297. Ch emistry: Sodium of 135, potassium 2.9, chloride 99, CO2 27, BUN 40, creatinine 6.33, glucose is rang ing from 94-191. Magnesium is 1.5. ABG showed pH of 7.55, pCO2 of 28.9, pO2 87.1. A-a gradient is 27. Ionized calcium 1.2 and this is on room air. The CT of the brain was done yesterday, which show ed focal area of nonspecific cortical and subcortical white matter hypodensity in the frontal lobe on the right. Microbiology: Her urine culture is growing vancomycin-resistant Enterococcus 25,000 col onies to 50,000 colonies and gram negative rods, less than 5000 colonies. Vancomycin-resistant Enter ococcus is sensitive to linezolid and imipenem along with nitrofurantoin, ampicillin and piperacillin . Blood cultures are negative since the at the time of collection and peritoneal fluid culture Staphylococcus aureus sensitive to multiple antibiotics except for amoxicillin, azithromycin, and cla rithromycin and piperacillin. Fecal occult blood test negative. IMPRESSION: 1. Acute Staphylococcal Peritonitis secondary to peritoneal dialysis catheter, most likely. The pat ient was seen by Dr. Lisa, who recommended vancomycin and rifampin, but because of new findings on u rinalysis and urine culture which is growing vancomycin-resistant enterococcus, vancomycin was stoppe d and the Zyvox was started along with cefepime. 2. Sepsis with negative blood cultures. 3. Lactic acidosis, resolved. 4. Deep coma, the patient was seen by neurologist who recommends to check cortisol, TSH and free T4. The patient had CT of the brain done yesterday which showed a suspicious area of cortical and subco rtical white matter hypodensity in the frontal lobe on the right. MRI was recommended by radiologist . We are waiting for the full official report of Dr. Enriquez and Neurology evaluation which was don e this morning. 5. Hypokalemia. Would replace her with 10 mEq of KCl. 6. Anemia secondary to end-stage renal disease, managed with Epogen 20,000 units every 2 weeks and I believe that information is from her . Fecal occult blood test was negative. 7. Diabetes mellitus type 2, well controlled. 8. Hypertension, controlled. 9. Dyslipidemia. 10. History of gout. PLAN: To change her code status to do not resuscitate after talking to her who wishes to eriberto nge her to that. We will continue her side Zyvox and rifampin and cefepime. We will continue suppor tive care, but she will be moved to intermediate care unit. I will obtain EEG to rule out seizures. We will give her 20,000 units of Epogen if this is approved by Dr. Subramanian, her repulping supervisor, and would replace her potassium with 10 mEq of .
--- NOTE | 2017-10-26 14:24 | CON ---
DATE OF CONSULTATION: 10/26/2017 CONSULTING PHYSICIAN: Hospitalist Service. IMPRESSION: 1. Toxic-metabolic encephalopathy. Rule out subclinical seizure activity. 2. Right frontal chronic cerebral infarct. 3. Renal failure. 4. Diabetes. 5. Peritonitis. PLAN: 1. Check T4, cortisol and ammonia level. 2. EEG. 3. Continue supportive measures. HISTORY OF PRESENT ILLNESS: Ms. Traore is a 67-year-old white female who came in with probable periton itis. She had been on some antibiotics prior to admission, which complicated her management. She woods s had some persistent encephalopathy. Her CAT scan of the brain shows an area of chronic infarction in the right frontal lobe. There is some generalized cerebral atrophy. Laboratory studies were revi ewed. She has been cardiovascularly stable. I was called to give neurologic opinion. PAST MEDICAL HISTORY: As listed above. SOCIAL HISTORY: No drug use known. FAMILY HISTORY: Not obtainable. REVIEW OF SYSTEMS: Not obtainable. PHYSICAL EXAMINATION: GENERAL: Overweight, elderly lady, lying in bed quietly. HEENT: Pupils are 4 mm and reactive. Conjunctivae clear. Oropharynx is moist. NECK: Supple. EXTREMITIES: No rash noted. NEUROLOGIC: She would occasionally moan to stimulation, but I could not get her to follow any comman ds. She generally kept her eyes closed. She would resist eye opening to some degree. Her face appe ared to be symmetric. Tone appeared to be symmetric. She had some irregular body twitching and jerk ing seen bilaterally. Plantar response was upgoing on the left, equivocal on the right. CT was reviewed. SUMMARY: This is an elderly woman with ongoing infectious process as well as renal failure which cou ld account for her suppressed mental status. Given the area of frontal lobe infarction, she would al so be at risk for subclinical seizures. I will follow up on her test results.
--- NOTE | 2017-10-26 15:47 | PRG ---
DATE OF SERVICE: 10/26/2017 SUBJECTIVE: Ms. Traore has been transferred to the unit because of mental status changes. She was sta rted on broad spectrum coverage. CT of the brain done yesterday showed some changes which need to be followed with MRI. Right now, she is obtunded, does not open eyes spontaneously, mumbles. She has good strength in upper extremities, seems to move the lower extremities less well than upper. Has woods d no diarrhea, no respiratory symptoms, no bleeding. PHYSICAL EXAMINATION: VITAL SIGNS: T-max 99.2, blood pressure 143/94, pulse of 92-102, respirations 18-20, O2 sat 99-100%. She is actually breathing 29-30 times a minute. HEENT: Ocular movements are conjugate, but she does not establish eye contact. Pupils are equal and reactive. NECK: Supple. LUNGS: With symmetric air entry. HEART: S1, S2, regular rate. ABDOMEN: Flat, soft. PD catheter exit site appears normal. Extremities: Good strength in upper and lower extremities. Upgoing toes on the left, downgoing flex or response on the right. No clonus. NEUROLOGIC: She is obtunded, does not open eyes spontaneously, does not follow commands. LABORATORY DATA: White cell count 7.8, hemoglobin 6.7, platelets 297, 82% neutrophils. PH 7.5, pCO2 of 28, pO2 of 87. Sodium 135, creatinine 6.32, potassium 2.9, glucose 173, magnesium 1.5, calcium 8 .8, ammonia 22. There is a urinalysis from 10/22/2017. The CT of brain showed focal area of nonspec ific cortical and subcortical white matter hypodensity in the frontal lobe, right side. There is a c hest x-ray from 10/22/2017 with no acute findings. ASSESSMENT: 1. Type 2 diabetes with kidney cysts and methicillin sensitive Staphylococcus aureus CAPD associated peritonitis. 2. Delirium, metabolic encephalopathy. 3. Possible cerebrovascular accident in the right subcortical areas. DISCUSSION: Although the urinary tract findings will continue to be treated such, it is more likely that this mental status changes are related to other factors. She does have a dose changes and CT th at needed to be followed. Continue treatment for MSSA peritonitis, although with the current systemi c antimicrobial therapy that should suffice for the time being. Patient has been made DNR, but has b een ordered an MRI for diagnostic purposes following up the CT brain changes.
--- NOTE | 2017-10-26 17:01 | CON ---
DATE OF CONSULTATION: 10/26/2017 REASON FOR CONSULTATION: ICU management. HISTORY OF PRESENT ILLNESS: This patient was moved to the ICU earlier today for mental status change s. It should be noted that she is DNR. She is currently in the hospital with peritonitis. She is a chronic peritoneal dialysis patient and has a peritoneal dialysis catheter in place. She is being s een by Internal Medicine and Infectious Disease. She has a generalized weakness and apparently has b een refusing all blood transfusions. PAST MEDICAL HISTORY: 1. Diabetes mellitus. 2. End-stage renal disease. 3. Anemia. 4. Gout. 5. Hyperlipidemia. 6. Kidney stones. 7. Hypertension. PAST SURGICAL HISTORY: 1. Orthopedic surgery. 2. Peritoneal dialysis. 3. Bladder lift. 4. . 5. Hysterectomy. ALLERGIES: CODEINE, SULFA and HYDROCODONE. CURRENT MEDICATIONS: Allopurinol, Lipitor, cefepime, docusate, Cymbalta, iron sulfate, hydralazine, insulin, labetalol, linezolid, rifampin and senna. SOCIAL HISTORY: Does not drink, does not smoke. REVIEW OF SYSTEMS: Cannot be obtained as the patient is disoriented. PHYSICAL EXAMINATION: VITAL SIGNS: Heart rate 97, blood pressure 153/91, O2 saturation 100%, respiratory rate 25, temperat ure 98.2. GENERAL: The patient will open her eyes to stimulation. She will not follow commands. HEENT: Remarkable for poor dentition. NECK: No JVD. LUNGS: Clear to auscultation. CARDIOVASCULAR: S1, S2 regular. ABDOMEN: Tender to palpation. Peritoneal dialysis catheter is noted. EXTREMITIES: No edema. LABORATORY DATA: White blood count 7.8, hematocrit 21.2, hemoglobin 6.7, platelet count 297. Sodium 135, potassium 2.9, chloride 99, CO2 27, BUN 40, creatinine 6.3, glucose 172. ASSESSMENT: 1. Peritonitis. 2. Altered mental status secondary to peritonitis. 3. Severe anemia. PLAN: Continue supportive care with IV antibiotics. She has a DNR order. We will follow.
[2017-10-26] MEDS: Atorvastatin Calcium 20 MG TAB PO SCH (20:42)
[2017-10-26] MEDS: Cefepime 1 GM, Admixture Fee 1 EACH in Sterile Water 10 ML SLOW IVP SCH (22:40)
[2017-10-27] MEDS: hydrALAZINE 20 MG/ML VIAL SLOW IVP PRN ×3 (00:18→12:12)
[2017-10-27] MEDS: Labetalol HCl 100 MG/20 ML VIAL SLOW IVP PRN ×2 (01:24→11:10)
[2017-10-27 04:37] LABS: #Eosinphils 0.3 thou/uL (0.0-0.7); #Lymphocytes 0.5 thou/uL (1.20-3.40); #Monocytes 0.6 thou/uL (0.11-0.59); #Neutrophils 9.7 thou/uL (1.40-6.50); %Basophils 0.1 % (0.0-1.0); %Eosinophils 2.8 % (0.0-10.0); %Lymphocytes 4.5 % (21.0-51.0); %Monocytes 5.2 % (0.0-10.0); Hematocrit 24.5 % (36.0-47.0); Mean Platelet Volume 6.3 fL (7.4-10.4); Red Blood Cell (RBC) Count 2.25 mill/uL (4.20-5.40); White Blood Cell (WBC) Count 11.1 thou/uL (4.8-10.8)
[2017-10-27 05:00] LABS: Anion Gap 15 mmol/L (10-20); BUN (Urea Nitrogen) 37 mg/dL (9.8-20.1); Calc. Creatinine Clearance 10 mL/min (70-130); Carbon Dioxide 24 mmol/L (23-31); Chloride 98 mmol/L (98-107); Estimated GFR-MDRD 6
--- NOTE | 2017-10-27 09:03 | PRG ---
DATE OF SERVICE: 10/27/2017 The patient is still fully responsive. She will startle when stimulated, but will not follow any com mands. PHYSICAL EXAMINATION: VITAL SIGNS: Temperature 98.9, pulse 107, blood pressure 151/60, 24-hour intake 1500, output has bee n through peritoneal dialysis. HEENT: Unremarkable. NECK: No JVD. CHEST: Clear. CARDIAC: S1 and S2 regular. ABDOMEN: Soft, peritoneal dialysis catheter noted. EXTREMITIES: No edema. LABORATORY DATA: White blood cell count 11.1, hemoglobin 7.8, hematocrit 24.5, platelet count 387. Sodium 134, potassium 3.1, chloride 92, CO2 24, BUN 37, creatinine 6.6, glucose 237. ASSESSMENT: 1. Encephalopathy, multifactorial. 2. Peritonitis. 3. Altered mental status. PLAN: 1. Transfer back to telemetry. There is little to offer her in terms ICU management since she is DN R. I would focus on palliative care measures. 2. Continue antibiotics.
[2017-10-27] MEDS: Linezolid 600 MG in Premix Bag 1 BAG IVPB SCH ×2 (10:56→22:23)
[2017-10-27] MEDS: Sevelamer Carbonate 800 MG TAB PO SCH ×2 (11:51→18:05)
[2017-10-27] MEDS: Allopurinol 100 MG TAB PO SCH (11:51)
[2017-10-27] MEDS: Ferrous Sulfate 325 MG TAB PO SCH ×2 (11:51→18:05)
[2017-10-27] MEDS: Docusate 100 MG CAP PO SCH ×2 (11:52→21:50)
[2017-10-27] MEDS: Folic Acid/Vit B Comp W-C PO SCH (11:52)
[2017-10-27] MEDS: Rifampin 300 MG CAP PO SCH ×2 (11:53→22:29)
[2017-10-27] MEDS ORDERED: levETIRAcetam In NaCl (Iso-Os) 1,000 MG in Premix Bag 1 BAG IVPB SCH ×2 (12:00)
[2017-10-27] MEDS: Sodium Chloride 0.9% 1,000 ML IV SCH ×2 (13:20→18:03)
--- NOTE | 2017-10-27 13:49 | EEG ---
Referring Physician: Stefano NOLAND EEG # [id number] TEST TYPE: ROUTINE PORTABLE INPATIENT REPORT: AN EEG USING THE INTERNATIONAL TEN-TWENTY SYSTEM OF ELECTRODE PLACEMENT WAS PERFORMED. The background activity consists primarily of sharp wave activity followed by slow wave discharge that is generalized in distribution. These are occurring at somewhat less than 1 hertz. There is occasional breaks in the pattern with some medium amplitude theta seen for a very short intervals in localized regions. Photic stimulation was unremarkable. IMPRESSION: THIS IS AN ABNORMAL STUDY CONSISTENT WITH EITHER SUBCLINICAL SEIZURE ACTIVITY OR BILATERAL PLEDS. Laser Beam Color Scanner Operator: DEBRA Veterinary Virus Serum Inspector: [email or web address]
--- NOTE | 2017-10-27 15:27 | PDOC.PN ---
- Subjective Encounter Start Date: 10/27/17 Encounter Start Time: 15:20 Subjective: f/u for persistent metabolic encephalopathy, sepsis due to peritonitis on -: Cefepime, Zyvox and Rifampin. Peritoneal cx with staph aureus and Ucx -: with VRE E. coli. Nsg reports minimally responsive, not following commands - Objective Resuscitation Status: Resuscitation Status DNR:Do Not Resuscitate MAR Reviewed: Yes Vital Signs & Weight: Vital Signs (12 hours) Temp Pulse Resp BP Pulse Ox 10/27/17 12:12 106 H 202/60 H 10/27/17 12:00 98.7 F 10/27/17 11:10 106 H 183/68 H 10/27/17 08:00 98.3 F 106 H 22 H 97 10/27/17 07:00 98.3 F 10/27/17 04:10 99 191/60 H 10/27/17 04:00 98.9 F Weight Admit Weight 160 lb 9.6 oz Weight 162 lb 11.218 oz Most Recent Monitor Data Heart Rate from ECG 100 NIBP 143/66 NIBP BP-Mean 82 Respiration from ECG 23 SpO2 96 I&O: 10/26/17 10/27/17 10/28/17 06:59 06:59 06:59 Intake Total 1500 907 100 Output Total 235 45 Balance 1500 672 55 Result Diagrams: 10/27/17 03:39 10/27/17 03:39 Additional Labs: Accuchecks 10/27/17 10/27/17 10/26/17 10:58 06:46 22:45 POC Glucose 194 H 228 H 158 H 10/26/17 17:11 POC Glucose 131 H Microbiology 10/23/17 10:15 Stool Stool Occult Blood (JOSE R) - Final 10/22/17 14:25 Urine Straight Catheter Urine Culture - Final Vanc-resistant Enterococcus Gram Negative Stanislaw 10/22/17 13:26 Peritoneal Fluid Culture - Pending Body Fluid Culture - Final Staphylococcus aureus 10/26/17 12:40 Urine menezes catheter Urine Culture - Preliminary NO GROWTH AT 24 HOURS 10/22/17 14:10 Venous blood - Right Arm Blood Culture - Preliminary NO GROWTH AT 48 HOURS 10/22/17 14:10 Venous blood - Left Arm Blood Culture - Preliminary NO GROWTH AT 48 HOURS Laboratory Tests 10/23/17 10/24/17 10/25/17 05:27 05:14 10:27 Hgb 5.3 L* 6.3 L Potassium 3.3 L 10/26/17 10/26/17 07:30 07:30 Hgb 6.7 L Potassium 2.9 L* Radiology Reviewed by me: Yes (EEG - showing seizure like activity) EKG Reviewed by me: Yes (Tele - SR in 90's) Phys Exam - Physical Examination opens eyes briefly to name then falls asleep HEENT: PERRLA, oral pharynx no lesions Neck: no JVD, supple Diminished in bases Respiratory: clear to auscultation bilateral Cardiovascular: RRR PD cath in place Gastrointestinal: soft, non-tender, no distention, positive bowel sounds Musculoskeletal: pulses present opens eyes briefly to name, does not follow commands Skin: normal turgor, cap refill <2 seconds Dx/Plan (1) Acute metabolic encephalopathy Code(s): G93.41 - METABOLIC ENCEPHALOPATHY Status: Acute Comment: multifactorial delirium, supportive mgmt (2) Seizures complicating infection Code(s): R56.9 - UNSPECIFIED CONVULSIONS Status: Acute Comment: Keppra 250mg BID per Neurology service (3) Peritonitis associated with peritoneal dialysis Status: Acute Comment: Continue Cefepime, Rifamipin and Zyvox (4) Macrocytic anemia Code(s): D53.9 - NUTRITIONAL ANEMIA, UNSPECIFIED Status: Chronic Comment: Stable H/H, no evidence of active blood loss (5) Hypokalemia Code(s): E87.6 - HYPOKALEMIA Status: Acute Comment: KCL replacement (6) UTI (urinary tract infection) due to Enterococcus Code(s): N39.0 - URINARY TRACT INFECTION, SITE NOT SPECIFIED; B95.2 - ENTEROCOCCUS THE CAUSE OF DISEASES CLASSIFIED ELSEWHERE Status: Acute (7) ESRD on peritoneal dialysis Code(s): N18.6 - END STAGE RENAL DISEASE; Z99.2 - DEPENDENCE ON RENAL DIALYSIS Status: Chronic Comment: PD per Nephrology service - Plan continue antibiotics, social worker health services, respiratory therapy, DVT proph w/SCDs Poor prognosis -: Supportive mgmt -: Palliative care consult -: Consider Hospice evaluation -: PD per Nephrology service * DNR status * AM lab: BMP * Transfer to Tele
--- NOTE | 2017-10-27 17:11 | PRG ---
DATE OF SERVICE: 10/27/2017 SUBJECTIVE: Ms. Traore is quite encephalopathic, does not open her eyes, same as yesterday. OBJECTIVE: VITAL SIGNS: T-max 98.9, blood pressure 170/66, pulse 97, O2 sat 96%. HEENT: The sclerae are white. Pupils are reactive and symmetric. Roving eye movements without nyst agmus. The eye movements are conjugate. LUNGS: With symmetric air entry. HEART: S1, S2, regular rate. ABDOMEN: Flat and soft. EXTREMITIES: She has pretty good muscle tone in the upper extremities, but I could not get much in t he lower. LABORATORY DATA: The white cell count is 11.1, hemoglobin 7.8, platelets 387 with 87% neutrophils. Chemistry, creatinine 6.59, sodium 134, potassium 3.1. The patient had an EEG, which showed abnormal ities with either subclinical seizure activity or bilateral tLEDs. I had ordered an MRI, which has n ot been done. ASSESSMENT AND DISCUSSION: Type 2 diabetes, kidney cysts, methicillin sensitive Staphylococcus aureu s, CAPD associated peritonitis, encephalopathy with possible cerebrovascular accident. The patient c ontinues to receive treatment for the peritonitis. She also had those organisms isolated from the bl adder, but my view is that those are more likely to represent colonization and true pathogenic role i n her mental status changes.
--- NOTE | 2017-10-27 19:25 | PRG ---
DATE OF SERVICE: 10/27/2017 SUBJECTIVE: Patient was seen and examined in ICU and she is not responding, very somnolent and canno t follow commands. OBJECTIVE: GENERAL: This is an elderly female, very somnolent. VITAL SIGNS: Temperature 98.0, pulse 100, respiratory 18, blood pressure 158/52. HEENT: Atraumatic, normocephalic. Oral mucosa is moist. NECK: Supple. CARDIOVASCULAR: S1, S2 heard. Rate and rhythm regular. RESPIRATORY: Clear to auscultation. GASTROINTESTINAL: Abdomen is soft. MUSCULOSKELETAL: No tenderness. No edema. DERMATOLOGIC: No skin rash. NEUROLOGIC: Somnolent and not able to check, not following commands. PSYCHIATRIC: Mood and affect normal. LABORATORY DATA: Hemoglobin is 7.8, potassium is 3.1, BUN is 37, creatinine is 6.5. ASSESSMENT AND PLAN: 1. End-stage renal disease, on peritoneal dialysis as tolerated. 2. Hypertension. 3. Anemia, stable. 4. Hypokalemia. Replace and monitor. 5. Altered mentation. 6. Peritonitis. Continue antibiotics, follow up with Infectious Disease. 7. The patient was made DNR today. Long-term prognosis is poor.
[2017-10-27] MEDS: Atorvastatin Calcium 20 MG TAB PO SCH (21:50)
[2017-10-27] MEDS: Cefepime 1 GM, Admixture Fee 1 EACH in Sterile Water 10 ML SLOW IVP SCH (22:22)
[2017-10-28] MEDS: Docusate 100 MG CAP PO SCH ×2 (07:35→19:52)
[2017-10-28] MEDS: Allopurinol 100 MG TAB PO SCH (07:35)
[2017-10-28] MEDS: Sevelamer Carbonate 800 MG TAB PO SCH ×3 (07:35→17:34)
[2017-10-28] MEDS: Ferrous Sulfate 325 MG TAB PO SCH ×2 (07:35→17:34)
[2017-10-28] MEDS: Folic Acid/Vit B Comp W-C PO SCH (07:36)
[2017-10-28] MEDS: Linezolid 600 MG in Premix Bag 1 BAG IVPB SCH ×2 (09:34→20:39)
[2017-10-28] MEDS: Rifampin 300 MG CAP PO SCH ×2 (09:37→19:52)
[2017-10-28] MEDS: Sodium Chloride 0.9% 1,000 ML IV SCH (12:41)
--- NOTE | 2017-10-28 18:25 | PDOC.PN ---
- Subjective Encounter Start Date: 10/28/17 Encounter Start Time: 18:20 Subjective: f/u for multifactorial encephalopathy and seizure activity on Keppra -: and IV Zyvox, Cefepime. Rifampin on hold due to NPO status. More awake -: per nursing. - Objective Resuscitation Status: Resuscitation Status DNR:Do Not Resuscitate Vital Signs & Weight: Vital Signs (12 hours) Temp Pulse Pulse Pulse Resp BP BP 10/28/17 15:51 98.4 F 98 14 10/28/17 11:30 98.5 F 99 18 10/28/17 07:57 98 111 H 173/74 H 193/84 H 10/28/17 07:34 98.1 F 99 16 10/28/17 07:30 98.1 F 99 16 BP BP Pulse Ox Pulse Ox 10/28/17 15:51 149/67 H 96 10/28/17 11:30 134/65 95 10/28/17 07:57 91 L 10/28/17 07:34 153/86 H 96 10/28/17 07:30 96 Weight Admit Weight 160 lb 9.6 oz Weight 168 lb 3.2 oz Most Recent Monitor Data Heart Rate from ECG 93 NIBP 131/42 NIBP BP-Mean 75 Respiration from ECG 16 SpO2 97 I&O: 10/27/17 10/28/17 10/29/17 06:59 06:59 06:59 Intake Total 907 1743 Output Total 235 195 Balance 672 1548 Result Diagrams: 10/27/17 03:39 10/27/17 03:39 Additional Labs: Accuchecks 10/28/17 10/28/17 10/28/17 17:54 11:30 05:55 POC Glucose 125 H 195 H 184 H 10/28/17 00:05 POC Glucose 197 H Microbiology 10/23/17 10:15 Stool Stool Occult Blood (JOSE R) - Final 10/22/17 14:25 Urine Straight Catheter Urine Culture - Final Vanc-resistant Enterococcus Gram Negative Stanislaw 10/22/17 13:26 Peritoneal Fluid Culture - Pending Body Fluid Culture - Final Staphylococcus aureus 10/26/17 12:40 Urine menezes catheter Urine Culture - Preliminary NO GROWTH AT 24 HOURS 10/26/17 12:40 Urine menezes catheter Urine Culture - Preliminary Enterococcus species 10/22/17 14:10 Venous blood - Right Arm Blood Culture - Preliminary NO GROWTH AT 48 HOURS 10/22/17 14:10 Venous blood - Left Arm Blood Culture - Preliminary NO GROWTH AT 48 HOURS Laboratory Tests 10/23/17 10/24/17 10/25/17 05:27 05:14 10:27 Hgb 5.3 L* 6.3 L Potassium 3.3 L 10/26/17 10/26/17 07:30 07:30 Hgb 6.7 L Potassium 2.9 L* EKG Reviewed by me: Yes (Tele - sinus tachycardia in low 100's) Phys Exam - Physical Examination mumbles few words, opens eyes briefly then falls asleep HEENT: oral pharynx no lesions Neck: no JVD, supple Respiratory: no wheezing, clear to auscultation bilateral Cardiovascular: RRR PD catheter in place Gastrointestinal: soft, non-tender, no distention, positive bowel sounds Musculoskeletal: no edema, pulses present A x O x 1 to person Skin: normal turgor, cap refill <2 seconds Dx/Plan (1) Acute metabolic encephalopathy Code(s): G93.41 - METABOLIC ENCEPHALOPATHY Status: Acute Comment: multifactorial delirium, supportive mgmt (2) Seizures complicating infection Code(s): R56.9 - UNSPECIFIED CONVULSIONS Status: Acute Comment: Keppra 500mg BID per Neurology service (3) Peritonitis associated with peritoneal dialysis Status: Acute Comment: Continue Cefepime and Zyvox, Rifampin on hold due to NPO status (4) Macrocytic anemia Code(s): D53.9 - NUTRITIONAL ANEMIA, UNSPECIFIED Status: Chronic Comment: Stable H/H, no evidence of active blood loss (5) Hypokalemia Code(s): E87.6 - HYPOKALEMIA Status: Acute Comment: KCL replacement (6) UTI (urinary tract infection) due to Enterococcus Code(s): N39.0 - URINARY TRACT INFECTION, SITE NOT SPECIFIED; B95.2 - ENTEROCOCCUS THE CAUSE OF DISEASES CLASSIFIED ELSEWHERE Status: Acute Comment: See above (7) ESRD on peritoneal dialysis Code(s): N18.6 - END STAGE RENAL DISEASE; Z99.2 - DEPENDENCE ON RENAL DIALYSIS Status: Chronic Comment: PD per Nephrology service - Plan continue antibiotics, PT/OT, social media strategist, DVT proph w/SCDs Continue supportive mgmt -: Continue Zyvox and Cefepime -: Swallow evaluation as mental status improves -: PD per Nephrology -: Keppra 500mg BID * Palliative care consult
[2017-10-28] MEDS: Atorvastatin Calcium 20 MG TAB PO SCH (19:51)
[2017-10-28] MEDS: Cefepime 1 GM, Admixture Fee 1 EACH in Sterile Water 10 ML SLOW IVP SCH (20:39)
--- NOTE | 2017-10-28 22:23 | PRG ---
DATE OF SERVICE: 10/28/2017 SUBJECTIVE: Ms. Traore has been started on Keppra, since I saw her in the ICU. She has become much mo re alert and communicative. She continues to have fairly prominent asterixis on postural extension. She seems to have brief periods where either, she is fading out mentally and does not respond to you at times. This seems to come and go quite quickly. She did not have anything focal on exam, otherw ise talked to the nursing staff and they have seen similar pattern throughout the day. I suspect bharath t either due to inadequate clearing of doing with dialysis, this is causing a renal encephalopathy wi th asterixis and slowed mentation versus the possibility of some continued subclinical seizure activi ty. We will increase her Keppra and see if this takes care of the problem, otherwise she may need a more aggressive dialysis schedule.
--- NOTE | 2017-10-28 23:09 | PRG ---
DATE OF SERVICE: 10/28/2017 SUBJECTIVE: The patient is more awake today and told her name to me today. No sob. Puffy face. No N/V reported. OBJECTIVE: GENERAL: An elderly female in moderate distress. VITAL SIGNS: Temperature 98.3, pulse 102, respiratory rate 20, blood pressure 167/76. HEENT: Atraumatic, normocephalic. Oral mucosa is moist. NECK: Supple. CARDIOVASCULAR: S1, S2 heard. Rate and rhythm regular. RESPIRATORY: Clear to auscultation. GASTROINTESTINAL: Abdomen is soft. MUSCULOSKELETAL: No tenderness. No edema. DERMATOLOGIC: No skin rash. NEUROLOGIC: Alert and awake and oriented x3. No focal neurologic deficits. Moving all the extremities. PSYCHIATRIC: Mood and affect normal. LABORATORY DATA: Not done today. ASSESSMENT AND PLAN: 1. End-stage renal disease. We will continue on peritoneal dialysis as tolerated. 2. Altered mentation seems better. 3. Peritonitis. Continue antibiotics. 4. Edema, controlled. 5. Hypertension, stable. Repeat labs in the morning. We will monitor renal function and continue on peritoneal dialysis as tolerated. The patient's mentation seems to be a little bit better today. We will continue to monitor. No family members available for discussion. [facility]ITAL[facility]ain[facility]
[2017-10-29 05:40] LABS: Anion Gap 11 mmol/L (10-20); BUN (Urea Nitrogen) 32 mg/dL (9.8-20.1); Calc. Creatinine Clearance 11 mL/min (70-130); Calcium 8.1 mg/dL (7.8-10.44); Carbon Dioxide 26 mmol/L (23-31); Chloride 98 mmol/L (98-107); Estimated GFR-MDRD 7
[2017-10-29] MEDS ORDERED: Potassium Chloride 40 MEQ in Sodium Chloride 0.9% 250 ML 200 ML IVPB SCH ×3 (06:15→19:00)
[2017-10-29 06:20] LABS: Band 6 % (5-11); Hematocrit 20.5 % (36.0-47.0); Mean Platelet Volume 6.1 fL (7.4-10.4); Metamyelocyte 1 % (0-0); Myelocyte 2 % (0-0); Neutrophil 74 % (42-75); Red Blood Cell (RBC) Count 1.87 mill/uL (4.20-5.40); White Blood Cell (WBC) Count 9.3 thou/uL (4.8-10.8)
[2017-10-29] MEDS ORDERED: Potassium Chloride 20 MEQ TAB PO SCH (09:30)
[2017-10-29] MEDS: Linezolid 600 MG in Premix Bag 1 BAG IVPB SCH ×2 (10:13→21:07)
[2017-10-29] MEDS: Allopurinol 100 MG TAB PO SCH (10:14)
[2017-10-29] MEDS: Docusate 100 MG CAP PO SCH ×3 (10:14→21:33)
[2017-10-29] MEDS: Sevelamer Carbonate 800 MG TAB PO SCH ×3 (10:14→17:00)
[2017-10-29] MEDS: Ferrous Sulfate 325 MG TAB PO SCH ×2 (10:14→17:00)
[2017-10-29] MEDS: Folic Acid/Vit B Comp W-C PO SCH (10:15)
[2017-10-29] MEDS: Rifampin 300 MG CAP PO SCH ×2 (10:16→21:18)
--- NOTE | 2017-10-29 11:33 | PDOC.PN ---
- Subjective Encounter Start Date: 10/29/17 Encounter Start Time: 11:15 Subjective: f/u for AMS, peritonitis IV Zyvox, Cefepime. Nsg reports more alert today -: and responsive to questions. Still NPO except for water. - Objective Resuscitation Status: Resuscitation Status DNR:Do Not Resuscitate MAR Reviewed: Yes Vital Signs & Weight: Vital Signs (12 hours) Temp Pulse Resp BP Pulse Ox 10/29/17 08:05 98.8 F 104 H 20 173/73 H 95 10/29/17 08:00 98.8 F 104 H 20 95 10/29/17 04:00 98.5 F 95 20 171/76 H 96 10/29/17 01:47 98 Weight Admit Weight 160 lb 9.6 oz Weight 171 lb 8 oz Most Recent Monitor Data Heart Rate from ECG 93 NIBP 131/42 NIBP BP-Mean 75 Respiration from ECG 16 SpO2 97 I&O: 10/28/17 10/29/17 10/30/17 06:59 06:59 06:59 Intake Total 1743 2000 Output Total 195 612 Balance 1548 1389 Result Diagrams: 10/29/17 04:30 10/29/17 04:30 Additional Labs: Accuchecks 10/29/17 10/28/17 10/28/17 06:41 20:45 17:54 POC Glucose 121 H 177 H 125 H 10/28/17 11:30 POC Glucose 195 H EKG Reviewed by me: Yes (Tele - SR in 80's) Phys Exam - Physical Examination Constitutional: NAD alert, responds to questions HEENT: PERRLA, oral pharynx no lesions Neck: no JVD, supple Respiratory: no wheezing, clear to auscultation bilateral Cardiovascular: RRR PD catheter in place Gastrointestinal: soft, non-tender, no distention, positive bowel sounds Musculoskeletal: no edema, pulses present Neurological: moves all 4 limbs A x O x 2 Skin: normal turgor, cap refill <2 seconds Deviation from normal: Rai with clear urine Dx/Plan (1) Acute metabolic encephalopathy Code(s): G93.41 - METABOLIC ENCEPHALOPATHY Status: Acute Comment: multifactorial delirium, supportive mgmt, improving (2) Seizures complicating infection Code(s): R56.9 - UNSPECIFIED CONVULSIONS Status: Acute Comment: Keppra 500mg BID per Neurology service (3) Peritonitis associated with peritoneal dialysis Status: Acute Comment: Continue Cefepime and Zyvox, Rifampin on hold due to NPO status (4) Macrocytic anemia Code(s): D53.9 - NUTRITIONAL ANEMIA, UNSPECIFIED Status: Chronic Comment: Stable H/H, no evidence of active blood loss (5) Hypokalemia Code(s): E87.6 - HYPOKALEMIA Status: Acute Comment: KCL replacement (6) UTI (urinary tract infection) due to Enterococcus Code(s): N39.0 - URINARY TRACT INFECTION, SITE NOT SPECIFIED; B95.2 - ENTEROCOCCUS THE CAUSE OF DISEASES CLASSIFIED ELSEWHERE Status: Acute Comment: See above (7) ESRD on peritoneal dialysis Code(s): N18.6 - END STAGE RENAL DISEASE; Z99.2 - DEPENDENCE ON RENAL DIALYSIS Status: Chronic Comment: PD per Nephrology service - Plan continue antibiotics, PT/OT, social media strategist, out of bed/ambulate, DVT proph w/ SCDs Stable overall -: PD per Renal service -: Continue Zyvox and Cefepime -: SENIOR WEB DEVELOPER for swallow evaluation, start mech soft diet today -: KCL replacement * AM lab: BMP, CBC
[2017-10-29] MEDS: Epoetin (ESRD) 20,000 UNITS/ML SC SCH (15:39)
[2017-10-29] MEDS: Potassium Chloride 20 MEQ TAB PO SCH (17:00)
[2017-10-29 17:55] LABS: Anion Gap 11 mmol/L (10-20); BUN (Urea Nitrogen) 32 mg/dL (9.8-20.1); Calc. Creatinine Clearance 10 mL/min (70-130); Calcium 8.1 mg/dL (7.8-10.44); Carbon Dioxide 24 mmol/L (23-31); Chloride 101 mmol/L (98-107); Estimated GFR-MDRD 7
[2017-10-29] MEDS ORDERED: Potassium Chloride 40 MEQ in Premix Bag 1 BAG IVPB SCH (18:45)
[2017-10-29] MEDS: Sodium Chloride 0.9% 1,000 ML IV SCH (21:06)
[2017-10-29] MEDS: Atorvastatin Calcium 20 MG TAB PO SCH (21:07)
[2017-10-29] MEDS: Cefepime 1 GM, Admixture Fee 1 EACH in Sterile Water 10 ML SLOW IVP SCH (21:20)
--- NOTE | 2017-10-29 21:55 | PRG ---
DATE OF SERVICE: 10/29/2017 SUBJECTIVE: Patient was seen and examined at bedside and overnight events noted. Patient denies shortness of breath or cramps or chest pain or palpitation. No Nausea or vomiting or diarrhea or fever or chills. OBJECTIVE: GENERAL: This is a well-built female in no apparent distress. VITAL SIGNS: Temperature 98.6, pulse 103, respiratory rate 18, blood pressure 143/78. Musculoskeletal : No tenderness, No edema HEENT: Atraumatic normocephalic Neck: Supple Cardiovascular: S1S2 heard, Rate and rhythm regular Respiratory: Clear to auscultation Gastrointestinal: Abdomen is soft Dermatologic : No skin rash Neurologic: Alert and awake and oriented X3 No focal neurologic deficits. Moving all the extremities. Psychiatric: Mood and affect normal LABORATORY DATA: Potassium is 3.3, BUN is 32, creatinine is 6.3. ASSESSMENT AND PLAN: 1. End-stage renal disease on peritoneal dialysis. We will continue on peritoneal dialysis as tolerated. 2. Altered mentation, better. 3. Hypertension, stable. 4. Edema, controlled. 5. Hypokalemia, replace. 6. Anemia. We will continue on Epogen as tolerated. The patient was altered mentation is better. We will continue on peritoneal dialysis as tolerated. Continue antibiotics. MTDD
[2017-10-30 05:03] LABS: Anion Gap 8 mmol/L (10-20); BUN (Urea Nitrogen) 31 mg/dL (9.8-20.1); Calc. Creatinine Clearance 12 mL/min (70-130); Calcium 8.1 mg/dL (7.8-10.44); Carbon Dioxide 28 mmol/L (23-31); Chloride 103 mmol/L (98-107); Estimated GFR-MDRD 7; Magnesium 1.2 mg/dL (1.6-2.6)
[2017-10-30] MEDS: Sodium Chloride 0.9% 1,000 ML IV SCH (05:48)
[2017-10-30] MEDS: Docusate 100 MG CAP PO SCH ×2 (09:06→21:31)
[2017-10-30] MEDS: Folic Acid/Vit B Comp W-C PO SCH (09:06)
[2017-10-30] MEDS: Potassium Chloride 20 MEQ TAB PO SCH ×2 (09:06→18:06)
[2017-10-30] MEDS: Allopurinol 100 MG TAB PO SCH (09:06)
[2017-10-30] MEDS: Rifampin 300 MG CAP PO SCH ×2 (09:07→21:31)
[2017-10-30] MEDS: Ferrous Sulfate 325 MG TAB PO SCH ×2 (09:07→18:06)
[2017-10-30] MEDS: Sevelamer Carbonate 800 MG TAB PO SCH ×3 (09:25→18:11)
[2017-10-30] MEDS: Linezolid 600 MG in Premix Bag 1 BAG IVPB SCH (11:23)
--- NOTE | 2017-10-30 12:00 | PDOC.PN ---
- Subjective Encounter Start Date: 10/30/17 Encounter Start Time: 12:00 Subjective: f/u for peritonitis in context ESRD with PD tx with Cefepime, Zyvox. AMS -: persists but much improved. More clear and responsive to nsg. - Objective Resuscitation Status: Resuscitation Status DNR:Do Not Resuscitate MAR Reviewed: Yes Vital Signs & Weight: Vital Signs (12 hours) Temp Pulse Resp BP Pulse Ox 10/30/17 07:47 98.2 F 100 20 176/79 H 100 10/30/17 04:00 98.8 F 106 H 18 179/94 H 95 Weight Admit Weight 160 lb 9.6 oz Weight 174 lb 9.6 oz Most Recent Monitor Data Heart Rate from ECG 93 NIBP 131/42 NIBP BP-Mean 75 Respiration from ECG 16 SpO2 97 I&O: 10/29/17 10/30/17 10/31/17 06:59 06:59 06:59 Intake Total 2000 2860 Output Total 612 1258 Balance 1389 1602 Result Diagrams: 10/29/17 04:30 10/30/17 04:33 Additional Labs: Accuchecks 10/30/17 10/30/17 10/29/17 11:05 05:46 20:19 POC Glucose 130 H 126 H 204 H 10/29/17 17:29 POC Glucose 184 H Microbiology 10/23/17 10:15 Stool Stool Occult Blood (JOSE R) - Final 10/22/17 14:25 Urine Straight Catheter Urine Culture - Final Vanc-resistant Enterococcus Gram Negative Stanislaw 10/22/17 13:26 Peritoneal Fluid Culture - Pending Body Fluid Culture - Final Staphylococcus aureus 10/26/17 12:40 Urine menezes catheter Urine Culture - Preliminary NO GROWTH AT 24 HOURS 10/26/17 12:40 Urine menezes catheter Urine Culture - Preliminary Enterococcus species 10/22/17 14:10 Venous blood - Right Arm Blood Culture - Preliminary NO GROWTH AT 48 HOURS 10/22/17 14:10 Venous blood - Left Arm Blood Culture - Preliminary NO GROWTH AT 48 HOURS Laboratory Tests 10/23/17 10/24/17 10/25/17 05:27 05:14 10:27 WBC Hgb 5.3 L* 6.3 L Potassium 3.3 L Magnesium 10/26/17 10/26/17 10/27/17 07:30 07:30 03:39 WBC 11.1 H Hgb 6.7 L 7.8 L Potassium 2.9 L* Magnesium 10/30/17 04:33 WBC Hgb Potassium Magnesium 1.2 L EKG Reviewed by me: Yes (Tele - SR, intermittent tachycardia in low 100's) Phys Exam - Physical Examination Constitutional: NAD pale appearing, responds to questions HEENT: PERRLA, oral pharynx no lesions Neck: no JVD, supple Respiratory: no wheezing, clear to auscultation bilateral tachycardic PD catheter in place, CDI Gastrointestinal: soft, non-tender, no distention, positive bowel sounds Musculoskeletal: pulses present, edema present Neurological: moves all 4 limbs A x O x 3 Skin: normal turgor, cap refill <2 seconds Dx/Plan (1) Acute metabolic encephalopathy Code(s): G93.41 - METABOLIC ENCEPHALOPATHY Status: Acute Comment: multifactorial delirium, supportive mgmt, resolving (2) Seizures complicating infection Code(s): R56.9 - UNSPECIFIED CONVULSIONS Status: Acute Comment: Keppra 500mg BID per Neurology service (3) Peritonitis associated with peritoneal dialysis Status: Acute Comment: Continue Cefepime and Zyvox, Rifampin (4) Macrocytic anemia Code(s): D53.9 - NUTRITIONAL ANEMIA, UNSPECIFIED Status: Chronic Comment: Stable H/H, no evidence of active blood loss, H/H in am (5) Hypokalemia Code(s): E87.6 - HYPOKALEMIA Status: Acute Comment: KCL replacement (6) UTI (urinary tract infection) due to Enterococcus Code(s): N39.0 - URINARY TRACT INFECTION, SITE NOT SPECIFIED; B95.2 - ENTEROCOCCUS THE CAUSE OF DISEASES CLASSIFIED ELSEWHERE Status: Acute Comment: See above (7) ESRD on peritoneal dialysis Code(s): N18.6 - END STAGE RENAL DISEASE; Z99.2 - DEPENDENCE ON RENAL DIALYSIS Status: Chronic Comment: PD per Nephrology service - Plan continue antibiotics, PT/OT, clinical social work therapist, out of bed/ambulate, DVT proph w/ SCDs Stable overall -: OOB/ambulate with PT -: Continue Cefepime, Zyvox, Rifampin -: Saline Lock IVF -: KCL replacement * AM lab: BMP, H/H * Likely home in 48h
--- NOTE | 2017-10-30 21:28 | PRG ---
DATE OF SERVICE: 10/30/2017 SUBJECTIVE: Patient was seen and examined at bedside and overnight events noted. Patient denies any shortness of breath or chest pain or palpitation. No history of nausea or vomiting or diarrhea or f ever or chills or cramps. OBJECTIVE: GENERAL: This is a well-built female in no apparent distress. VITAL SIGNS: Temperature 98.0, pulse 100, respiratory rate 18 and blood pressure 113/63. HEENT: Atraumatic and normocephalic. Oral mucosa is moist. NECK: Supple. CARDIOVASCULAR: S1 and S2 heard. Rate and rhythm regular. RESPIRATORY: Clear to auscultation. GASTROINTESTINAL: Abdomen is soft. MUSCULOSKELETAL: No tenderness. No edema. DERMATOLOGIC: No skin rash. NEUROLOGIC: Alert, awake and oriented x3. No focal neurologic deficits. Moving all the extremities . PSYCHIATRIC: Mood and affect normal. LABORATORY DATA: Potassium is 3.6, BUN is 31 and creatinine is 5.7. ASSESSMENT AND PLAN: 1. End-stage renal disease on peritoneal dialysis, currently on dialysis as tolerated. 2. Hypokalemia, replace. 3. Altered mentation seems better. 4. Hypertension. 5. Anemia, chronic. 6. Replace potassium. Continue on peritoneal dialysis.
[2017-10-30] MEDS: Atorvastatin Calcium 20 MG TAB PO SCH (21:31)
[2017-10-30] MEDS: Cefepime 1 GM, Admixture Fee 1 EACH in Sterile Water 10 ML SLOW IVP SCH (21:32)
[2017-10-31 05:26] LABS: Hematocrit 22.2 % (36.0-47.0)
[2017-10-31 05:45] LABS: Anion Gap 11 mmol/L (10-20); BUN (Urea Nitrogen) 30 mg/dL (9.8-20.1); Calc. Creatinine Clearance 12 mL/min (70-130); Carbon Dioxide 27 mmol/L (23-31); Chloride 102 mmol/L (98-107); Estimated GFR-MDRD 7
[2017-10-31] MEDS: Ferrous Sulfate 325 MG TAB PO SCH ×3 (09:08→17:25)
[2017-10-31] MEDS: Potassium Chloride 20 MEQ TAB PO SCH ×2 (09:08→09:22)
[2017-10-31] MEDS: Allopurinol 100 MG TAB PO SCH ×2 (09:08→09:22)
[2017-10-31] MEDS: Rifampin 300 MG CAP PO SCH ×3 (09:08→20:40)
[2017-10-31] MEDS: Sevelamer Carbonate 800 MG TAB PO SCH ×4 (09:08→17:25)
[2017-10-31] MEDS: Docusate 100 MG CAP PO SCH ×2 (09:09→20:31)
[2017-10-31] MEDS: Folic Acid/Vit B Comp W-C PO SCH ×2 (09:09→09:22)
[2017-10-31] MEDS: Labetalol HCl 100 MG/20 ML VIAL SLOW IVP PRN (09:09)
[2017-10-31] MEDS ORDERED: Epoetin (ESRD) 10,000 UNITS/ML VIAL SC SCH (10:00)
[2017-10-31] MEDS ORDERED: Haloperidol Lactate 5 MG/ML VIAL IM SCH (12:30)
--- NOTE | 2017-10-31 13:02 | PDOC.PN ---
- Subjective Encounter Start Date: 10/31/17 Encounter Start Time: 12:00 Pt seen for followup re: peritoneal infection. Agitated, not answering questions, unable to complete ROS. - Objective Resuscitation Status: Resuscitation Status DNR:Do Not Resuscitate Vital Signs & Weight: Vital Signs (12 hours) Temp Pulse Pulse Resp BP BP BP 10/31/17 12:00 98.4 F 112 H 16 113/67 10/31/17 11:07 106 H 163/98 H 10/31/17 10:48 104 H 140/103 H 10/31/17 09:09 110 H 188/81 H 10/31/17 08:00 98.9 F 110 H 20 194/88 H 10/31/17 05:20 10/31/17 05:00 97 166/70 H 10/31/17 04:00 98.0 F 103 H 18 Pulse Ox Pulse Ox 10/31/17 12:00 99 10/31/17 11:07 97 10/31/17 10:48 10/31/17 09:09 10/31/17 08:00 95 10/31/17 05:20 98 10/31/17 05:00 10/31/17 04:00 98 Weight Admit Weight 160 lb 9.6 oz Weight 172 lb Most Recent Monitor Data Heart Rate from ECG 93 NIBP 131/42 NIBP BP-Mean 75 Respiration from ECG 16 SpO2 97 I&O: 10/30/17 10/31/17 11/01/17 06:59 06:59 06:59 Intake Total 2860 160 Output Total 1258 200 Balance 1602 -40 Result Diagrams: 10/31/17 05:11 10/31/17 05:11 Additional Labs: Accuchecks 10/31/17 10/30/17 10/30/17 05:50 20:38 17:20 POC Glucose 119 H 160 H 143 H Phys Exam - Physical Examination Constitutional: NAD HEENT: moist MMs Neck: supple Respiratory: clear to auscultation bilateral Cardiovascular: RRR Gastrointestinal: soft PD catheter Neurological: moves all 4 limbs Deviation from normal: agitated Dx/Plan (1) Peritonitis associated with peritoneal dialysis Status: Acute (2) UTI (urinary tract infection) due to Enterococcus Code(s): N39.0 - URINARY TRACT INFECTION, SITE NOT SPECIFIED; B95.2 - ENTEROCOCCUS THE CAUSE OF DISEASES CLASSIFIED ELSEWHERE Status: Acute (3) ESRD on peritoneal dialysis Code(s): N18.6 - END STAGE RENAL DISEASE; Z99.2 - DEPENDENCE ON RENAL DIALYSIS Status: Chronic (4) DM2 (diabetes mellitus, type 2) Status: Chronic (5) HTN (hypertension) Code(s): I10 - ESSENTIAL (PRIMARY) HYPERTENSION Status: Chronic (6) Dyslipidemia Code(s): E78.5 - HYPERLIPIDEMIA, UNSPECIFIED Status: Chronic - Plan PT/OT, out of bed/ambulate, DVT proph w/SCDs * . Continue IV antibiotics as below. Continue accuchecks, insulin sliding scale. Dialysis per nephrology service. Transfer to medical floor. Review of Systems - Medications/Allergies Allergies/Adverse Reactions: Allergies Allergy/AdvReac Type Severity Reaction Status Date / Time No Known Allergies Allergy Verified 10/23/17 07:12 Medications: Current Medications Acetaminophen (Tylenol) 650 mg PO Q4H PRN PRN Reason: Headache/Fever or Pain Allopurinol (Zyloprim) 100 mg PO DAILY [facility] Last Admin: 10/31/17 09:22 Dose: Not Given Atorvastatin Calcium (Lipitor) 20 mg PO [facility] Last Admin: 10/30/17 21:31 Dose: 20 mg Calcium Carbonate (Tums) 1,000 mg PO Q4H PRN PRN Reason: Heartburn or Indigestion Dextrose/Water (Dextrose 50%) 25 gm SLOW IVP PRN PRN PRN Reason: Hypoglycemia Last Admin: 10/23/17 15:28 Dose: 25 gm Docusate Sodium (Colace) 100 mg PO BID [facility] Last Admin: 10/31/17 09:09 Dose: Not Given Duloxetine HCl (Cymbalta) 30 mg PO DAILY [facility] Last Admin: 10/31/17 09:22 Dose: Not Given Epoetin Francois (Procrit) 10,000 units SC Q7D@1000 [facility] Last Admin: 10/29/17 15:39 Dose: 10,000 units Epoetin Francois (Procrit) 10,000 units SC NOW [facility] Stop: 10/31/17 14:00 Last Admin: 10/31/17 10:37 Dose: 10,000 units Ferrous Sulfate (Feosol) 325 mg PO BID-[facility] Last Admin: 10/31/17 09:23 Dose: Not Given Glucagon (Glucagon) 1 mg IM PRN PRN PRN Reason: Hypoglycemia Haloperidol Lactate (Haldol) 4 mg IM NOW [facility] Stop: 10/31/17 14:00 Last Admin: 10/31/17 12:21 Dose: 4 mg Hydralazine HCl (Apresoline) 10 mg SLOW IVP Q4H PRN PRN Reason: SBP Greater Than 180 Last Admin: 10/27/17 12:12 Dose: 10 mg Dextrose/Water (D5w) 1,000 mls @ 0 mls/hr IV .Q0M PRN; As Directed PRN Reason: Hypoglycemia Cefepime HCl 1 gm/Miscellaneous Medication 1 each/ Sterile Water 10 mls @ 120 mls/hr SLOW IVP 2200 [facility] Last Admin: 10/30/17 21:32 Dose: 10 mls Levetiracetam 500 mg/ Device 100 mls @ 200 mls/hr IVPB BID [facility] Last Admin: 10/31/17 09:08 Dose: 100 mls Insulin Human Regular (Humulin R) 0 units SC .MILD SLIDING SCALE PRN PRN Reason: Mild Correctional Scale Last Admin: 10/27/17 11:12 Dose: 2 unit Insulin Human Regular (Humulin R) 0 units SC .BEDTIME SLIDING SC PRN PRN Reason: Bedtime Correctional Scale Labetalol HCl (Normodyne) 10 mg SLOW IVP Q4H PRN PRN Reason: Systolic BP > 180 Last Admin: 10/31/17 09:09 Dose: 10 mg Miscellaneous Medication (Pharmacy To Dose) 1 each IVPB ONE PRN PRN Reason: Pharmacy to dose Stop: 11/21/17 17:56 Nitroglycerin (Nitrostat) 0.4 mg PO Q5MIN PRN PRN Reason: Chest Pain Ondansetron HCl (Zofran Odt) 4 mg PO Q6H PRN PRN Reason: Nausea/Vomiting Last Admin: 10/31/17 10:41 Dose: 4 mg Ondansetron HCl (Zofran) 4 mg IVP Q6H PRN PRN Reason: Nausea/Vomiting Rifampin (Rifadin) 300 mg PO 1000,2200 [facility] Last Admin: 10/31/17 09:23 Dose: Not Given Senna (Senokot) 2 tab PO HSPRN PRN PRN Reason: Constipation Sevelamer Carbonate (Renvela) 1,600 mg PO TID-WM [facility] Last Admin: 10/31/17 11:25 Dose: Not Given Sodium Chloride (Flush - Normal Saline) 10 ml IVF Q12HR [facility] Last Admin: 10/31/17 09:09 Dose: 10 ml Sodium Chloride (Flush - Normal Saline) 10 ml IVF PRN PRN PRN Reason: Saline Flush Last Admin: 10/27/17 22:24 Dose: 10 ml Tramadol HCl (Ultram) 50 mg PO Q6H PRN PRN Reason: Moderate Pain (4-6) Vitamin B Complex/Vit C/Folic Acid (Nephro-Kwan Tablet) 1 tab PO DAILY [facility] Last Admin: 10/31/17 09:22 Dose: Not Given
[2017-10-31] MEDS: Atorvastatin Calcium 20 MG TAB PO SCH (20:31)
[2017-10-31] MEDS: Cefepime 1 GM, Admixture Fee 1 EACH in Sterile Water 10 ML SLOW IVP SCH (21:28)
--- NOTE | 2017-10-31 22:42 | PRG ---
DATE OF SERVICE: 10/31/2017 NEPHROLOGY PROGRESS NOTE SUBJECTIVE: Patient was seen and examined at bedside and overnight events noted. Patient denies any shortness of breath or chest pain or palpitation. No history of nausea or vomiting or diarrhea or f ever or chills or cramps. OBJECTIVE: GENERAL: This is a well-built female in no apparent distress. VITAL SIGNS: Temperature 98.3, pulse 100, respirations 18, blood pressure 141/62. HEENT: Atraumatic, normocephalic. Oral mucosa is moist. NECK: Supple. CARDIOVASCULAR: S1, S2 heard. Rate and rhythm regular. RESPIRATORY: Clear to auscultation. GASTROINTESTINAL: Abdomen is soft. MUSCULOSKELETAL: No tenderness, no edema. DERMATOLOGIC: No skin rash. NEUROLOGIC: Alert and awake and oriented x3. No focal neurologic deficits. Moving all the extremit ies. PSYCHIATRIC: Mood and affect normal. LABORATORY DATA: Potassium is 3.6, BUN is 30, creatinine is 5.7. ASSESSMENT AND PLAN: 1. End-stage renal disease on peritoneal dialysis. Plan is to continue on dialysis as tolerated. 2. Altered mentation that seems to be better. 3. Hypertension, stable. 4. Anemia, chronic. 5. Hypokalemia. Monitor and replace. Plan is to continue on peritoneal dialysis as tolerated. Continue antibiotics.
[2017-11-01] MEDS: Ferrous Sulfate 325 MG TAB PO SCH ×2 (09:05→17:08)
[2017-11-01] MEDS: Sevelamer Carbonate 800 MG TAB PO SCH ×4 (09:05→17:09)
[2017-11-01] MEDS: Allopurinol 100 MG TAB PO SCH (09:05)
[2017-11-01] MEDS: Folic Acid/Vit B Comp W-C PO SCH ×2 (09:05→09:16)
[2017-11-01] MEDS: Docusate 100 MG CAP PO SCH ×2 (09:06→20:16)
[2017-11-01] MEDS: Rifampin 300 MG CAP PO SCH ×2 (09:17→21:36)
--- NOTE | 2017-11-01 11:53 | PDOC.PN ---
- Subjective Encounter Start Date: 11/01/17 Encounter Start Time: 08:40 Pt seen for followup re: peritoneal infection. Denies chest pain or shortness of breath. - Objective Resuscitation Status: Resuscitation Status DNR:Do Not Resuscitate MAR Reviewed: Yes Vital Signs & Weight: Vital Signs (12 hours) Temp Pulse Resp BP Pulse Ox 11/01/17 11:25 98.6 F 112 H 20 176/84 H 98 11/01/17 07:42 98.3 F 104 H 16 159/79 H 91 L 11/01/17 04:00 98.7 F 102 H 16 167/73 H 98 11/01/17 00:00 98.7 F 84 18 126/71 99 Weight Admit Weight 160 lb 9.6 oz Weight 171 lb 11.841 oz Most Recent Monitor Data Heart Rate from ECG 93 NIBP 131/42 NIBP BP-Mean 75 Respiration from ECG 16 SpO2 97 I&O: 10/31/17 11/01/17 11/02/17 06:59 06:59 06:59 Intake Total 160 60 Output Total 200 325 Balance -40 -325 60 Result Diagrams: 10/31/17 05:11 10/31/17 05:11 Additional Labs: Accuchecks 11/01/17 11/01/17 10/31/17 11:16 04:26 22:15 POC Glucose 142 H 136 H 119 H 10/31/17 10/31/17 10/31/17 16:49 16:18 12:14 POC Glucose 102 103 140 H 10/30/17 10/30/17 20:38 17:20 POC Glucose 160 H 143 H Phys Exam - Physical Examination Constitutional: NAD HEENT: moist MMs Neck: supple Respiratory: clear to auscultation bilateral Cardiovascular: RRR Gastrointestinal: soft Neurological: moves all 4 limbs Psychiatric: normal affect Dx/Plan (1) Peritonitis associated with peritoneal dialysis Status: Acute (2) UTI (urinary tract infection) due to Enterococcus Code(s): N39.0 - URINARY TRACT INFECTION, SITE NOT SPECIFIED; B95.2 - ENTEROCOCCUS THE CAUSE OF DISEASES CLASSIFIED ELSEWHERE Status: Acute (3) ESRD on peritoneal dialysis Code(s): N18.6 - END STAGE RENAL DISEASE; Z99.2 - DEPENDENCE ON RENAL DIALYSIS Status: Chronic (4) DM2 (diabetes mellitus, type 2) Status: Chronic (5) HTN (hypertension) Code(s): I10 - ESSENTIAL (PRIMARY) HYPERTENSION Status: Chronic (6) Dyslipidemia Code(s): E78.5 - HYPERLIPIDEMIA, UNSPECIFIED Status: Chronic - Plan plan discussed w/ family, continue antibiotics, PT/OT, out of bed/ambulate, DVT proph w/SCDs * . Continue antibiotics as below. Ambulate pt. Appreciate palliative care input. Discussed with , updated him. Review of Systems - Review of Systems Constitutional: Weakness. negative: Fever, Chills, Sweats, Malaise Cardiovascular: negative: Chest Pain, Palpitations, Orthopnea, Paroxysmal Noc. Dyspnea, Edema, Light Headedness, Other - Medications/Allergies Allergies/Adverse Reactions: Allergies Allergy/AdvReac Type Severity Reaction Status Date / Time No Known Allergies Allergy Verified 10/23/17 07:12 Medications: Current Medications Acetaminophen (Tylenol) 650 mg PO Q4H PRN PRN Reason: Headache/Fever or Pain Allopurinol (Zyloprim) 100 mg PO DAILY [facility] Last Admin: 11/01/17 09:05 Dose: 100 mg Atorvastatin Calcium (Lipitor) 20 mg PO HS [facility] Last Admin: 10/31/17 20:31 Dose: 20 mg Calcium Carbonate (Tums) 1,000 mg PO Q4H PRN PRN Reason: Heartburn or Indigestion Dextrose/Water (Dextrose 50%) 25 gm SLOW IVP PRN PRN PRN Reason: Hypoglycemia Last Admin: 10/23/17 15:28 Dose: 25 gm Docusate Sodium (Colace) 100 mg PO BID [facility] Last Admin: 11/01/17 09:06 Dose: Not Given Duloxetine HCl (Cymbalta) 30 mg PO DAILY [facility] Last Admin: 11/01/17 09:05 Dose: 30 mg Epoetin Francois (Procrit) 10,000 units SC Q7D@1000 [facility] Last Admin: 10/29/17 15:39 Dose: 10,000 units Ferrous Sulfate (Feosol) 325 mg PO BID-[facility] Last Admin: 11/01/17 09:05 Dose: 325 mg Glucagon (Glucagon) 1 mg IM PRN PRN PRN Reason: Hypoglycemia Hydralazine HCl (Apresoline) 10 mg SLOW IVP Q4H PRN PRN Reason: SBP Greater Than 180 Last Admin: 10/27/17 12:12 Dose: 10 mg Dextrose/Water (D5w) 1,000 mls @ 0 mls/hr IV .Q0M PRN; As Directed PRN Reason: Hypoglycemia Cefepime HCl 1 gm/Miscellaneous Medication 1 each/ Sterile Water 10 mls @ 120 mls/hr SLOW IVP 2200 [facility] Last Admin: 10/31/17 21:28 Dose: 10 mls Levetiracetam 500 mg/ Device 100 mls @ 200 mls/hr IVPB BID [facility] Last Admin: 11/01/17 09:16 Dose: 100 mls Insulin Human Regular (Humulin R) 0 units SC .MILD SLIDING SCALE PRN PRN Reason: Mild Correctional Scale Last Admin: 10/27/17 11:12 Dose: 2 unit Insulin Human Regular (Humulin R) 0 units SC .BEDTIME SLIDING SC PRN PRN Reason: Bedtime Correctional Scale Labetalol HCl (Normodyne) 10 mg SLOW IVP Q4H PRN PRN Reason: Systolic BP > 180 Last Admin: 10/31/17 09:09 Dose: 10 mg Miscellaneous Medication (Pharmacy To Dose) 1 each IVPB ONE PRN PRN Reason: Pharmacy to dose Stop: 11/21/17 17:56 Nitroglycerin (Nitrostat) 0.4 mg PO Q5MIN PRN PRN Reason: Chest Pain Ondansetron HCl (Zofran Odt) 4 mg PO Q6H PRN PRN Reason: Nausea/Vomiting Last Admin: 10/31/17 10:41 Dose: 4 mg Ondansetron HCl (Zofran) 4 mg IVP Q6H PRN PRN Reason: Nausea/Vomiting Rifampin (Rifadin) 300 mg PO 1000,2200 [facility] Last Admin: 11/01/17 09:17 Dose: Not Given Senna (Senokot) 2 tab PO HSPRN PRN PRN Reason: Constipation Sevelamer Carbonate (Renvela) 1,600 mg PO TID-WM [facility] Last Admin: 11/01/17 09:12 Dose: Not Given Sodium Chloride (Flush - Normal Saline) 10 ml IVF Q12HR [facility] Last Admin: 11/01/17 09:06 Dose: 10 ml Sodium Chloride (Flush - Normal Saline) 10 ml IVF PRN PRN PRN Reason: Saline Flush Last Admin: 10/27/17 22:24 Dose: 10 ml Tramadol HCl (Ultram) 50 mg PO Q6H PRN PRN Reason: Moderate Pain (4-6) Vitamin B Complex/Vit C/Folic Acid (Nephro-Kwan Tablet) 1 tab PO DAILY [facility] Last Admin: 11/01/17 09:16 Dose: Not Given
--- NOTE | 2017-11-01 13:04 | PRG ---
DATE OF SERVICE: 11/01/2017 SUBJECTIVE: Patient was seen and examined at bedside and overnight events noted. Patient denies any shortness of breath or chest pain or palpitation. No history of nausea or vomiting or diarrhea or f ever or chills or cramps. OBJECTIVE: GENERAL: This is a well-built female in no apparent distress. VITAL SIGNS: Temperature 98.6, pulse 112, respiratory rate 18, blood pressure 159/79. HEENT: Atraumatic, normocephalic. Oral mucosa is moist. NECK: Supple CARDIOVASCULAR: S1, S2 heard. Rate and rhythm regular. RESPIRATORY: Clear to auscultation. GASTROINTESTINAL: Abdomen is soft. MUSCULOSKELETAL: No tenderness, no edema. DERMATOLOGIC: No skin rash. NEUROLOGIC: Alert and awake and oriented x3. No focal neurologic deficits. Moving all the extremit ies. PSYCHIATRIC: Mood and affect normal LABORATORY DATA: No labs are done today. ASSESSMENT AND PLAN: 1. End-stage renal disease on peritoneal dialysis. We will continue on dialysis as tolerated. 2. Altered mentation. 3. Hypertension, stable. 4. Anemia, chronic. Patient refuses to have blood due to episcopalian reasons. 5. Hypokalemia, replace and monitor. 6. Check magnesium and potassium in the morning and we will continue on dialysis as tolerated.
[2017-11-01] MEDS: Atorvastatin Calcium 20 MG TAB PO SCH (20:17)
[2017-11-01] MEDS: Cefepime 1 GM, Admixture Fee 1 EACH in Sterile Water 10 ML SLOW IVP SCH (21:33)
[2017-11-02 04:57] LABS: Anion Gap 13 mmol/L (10-20); BUN (Urea Nitrogen) 25 mg/dL (9.8-20.1); Calc. Creatinine Clearance 11 mL/min (70-130); Calcium 8.4 mg/dL (7.8-10.44); Carbon Dioxide 25 mmol/L (23-31); Chloride 102 mmol/L (98-107); Estimated GFR-MDRD 7; Magnesium 1.1 mg/dL (1.6-2.6)
[2017-11-02] MEDS ORDERED: Potassium Chloride 20 MEQ TAB PO SCH (05:30)
[2017-11-02] MEDS: Docusate 100 MG CAP PO SCH ×2 (09:13→21:27)
[2017-11-02] MEDS: Sevelamer Carbonate 800 MG TAB PO SCH ×3 (09:13→17:17)
[2017-11-02] MEDS: Ferrous Sulfate 325 MG TAB PO SCH ×2 (09:15→17:21)
[2017-11-02] MEDS: Allopurinol 100 MG TAB PO SCH (09:15)
[2017-11-02] MEDS: Rifampin 300 MG CAP PO SCH ×2 (09:20→21:34)
[2017-11-02] MEDS: Folic Acid/Vit B Comp W-C PO SCH (09:20)
[2017-11-02] MEDS ORDERED: Epoetin (ESRD) 10,000 UNITS/ML VIAL SC SCH (12:00)
[2017-11-02] MEDS ORDERED: Magnesium 2 GM/NS 0.9% 50 ML 2 GM in Premix Bag 1 BAG IVPB SCH (12:00)
--- NOTE | 2017-11-02 13:09 | PRG ---
DATE OF SERVICE: 11/02/2017 SUBJECTIVE: Patient was seen and examined at bedside and overnight events noted. Patient denies any shortness of breath or chest pain or palpitation. No history of nausea or vomiting or diarrhea or f ever or chills or cramps. OBJECTIVE: GENERAL: This is a well-built female in no apparent distress. VITAL SIGNS: Temperature 98.5, pulse 99, respiratory 16, blood pressure 159/69. HEENT: Atraumatic, normocephalic. Oral mucosa is moist. NECK: Supple. CARDIOVASCULAR: S1, S2 heard. Rate and rhythm regular. RESPIRATORY: Clear to auscultation. GASTROINTESTINAL: Abdomen is soft. MUSCULOSKELETAL: No tenderness, no edema. DERMATOLOGIC: No skin rash. NEUROLOGIC: Alert and awake and oriented x3. No focal neurologic deficits. Moving all the extremit ies. PSYCHIATRIC: Mood and affect normal. LABORATORY DATA: Potassium is 2.8, BUN 25, creatinine 6.2, hemoglobin 7.1. ASSESSMENT AND PLAN: 1. End-stage renal disease on peritoneal dialysis. We will continue on peritoneal dialysis as angelo ated. 2. Hypokalemia, replace. 3. Anemia of chronic, patient refuses plan. 4. Hypertension. 5. Edema, controlled. 6. We will continue on peritoneal dialysis. We will continue to replace potassium. We will follow.
--- NOTE | 2017-11-02 14:00 | PDOC.PN ---
- Subjective Encounter Start Date: 11/02/17 Encounter Start Time: 12:00 Subjective: awake, no sob or chest pain -: poor oral intake -: no abd pain now - Objective Resuscitation Status: Resuscitation Status DNR:Do Not Resuscitate MAR Reviewed: Yes Vital Signs & Weight: Vital Signs (12 hours) Temp Pulse Resp BP Pulse Ox 11/02/17 11:22 98.5 F 99 16 159/69 H 95 11/02/17 08:00 98.7 F 99 16 157/69 H 98 Weight Admit Weight 160 lb 9.6 oz Weight 171 lb 4.787 oz Most Recent Monitor Data Heart Rate from ECG 93 NIBP 131/42 NIBP BP-Mean 75 Respiration from ECG 16 SpO2 97 I&O: 11/01/17 11/02/17 11/03/17 06:59 06:59 06:59 Intake Total 540 150 Output Total 325 300 Balance -325 240 150 Result Diagrams: 10/31/17 05:11 11/02/17 04:22 Additional Labs: Accuchecks 11/02/17 11/01/17 11/01/17 11:03 19:42 16:09 POC Glucose 120 H 149 H 106 Phys Exam - Physical Examination HEENT: PERRLA, moist MMs Neck: no JVD, supple Respiratory: no wheezing, no rales Cardiovascular: RRR, no significant murmur Gastrointestinal: soft, no distention, positive bowel sounds PD cath+ Musculoskeletal: no edema, pulses present Neurological: non-focal, moves all 4 limbs Psychiatric: A&O x 3 Dx/Plan (1) Peritonitis associated with peritoneal dialysis Status: Acute Qualifiers: Encounter type: subsequent encounter Qualified Code(s): T85.71XD - Infection and inflammatory reaction due to peritoneal dialysis catheter, subsequent encounter (2) Acute metabolic encephalopathy Code(s): G93.41 - METABOLIC ENCEPHALOPATHY Status: Acute Comment: resolving (3) Hypokalemia Code(s): E87.6 - HYPOKALEMIA Status: Acute Comment: KCL replacement per nephrogy advice (4) UTI (urinary tract infection) due to Enterococcus Code(s): N39.0 - URINARY TRACT INFECTION, SITE NOT SPECIFIED; B95.2 - ENTEROCOCCUS THE CAUSE OF DISEASES CLASSIFIED ELSEWHERE Status: Acute Comment: likely colonized? (5) DM2 (diabetes mellitus, type 2) Status: Chronic Qualifiers: Diabetes mellitus complication status: with kidney complications Diabetes mellitus complication detail: with chronic kidney disease Diabetes mellitus alf insulin use: without alf use Chronic kidney disease stage: on chronic dialysis Qualified Code(s): E11.22 - Type 2 diabetes mellitus with diabetic chronic kidney disease; N18.6 - End stage renal disease; N18.6 - End stage renal disease; N18.6 - End stage renal disease; N18.6 - End stage renal disease; Z99.2 - Dependence on renal dialysis; Z99.2 - Dependence on renal dialysis; Z99.2 - Dependence on renal dialysis; Z99.2 - Dependence on renal dialysis (6) Dyslipidemia Code(s): E78.5 - HYPERLIPIDEMIA, UNSPECIFIED Status: Chronic (7) ESRD on peritoneal dialysis Code(s): N18.6 - END STAGE RENAL DISEASE; Z99.2 - DEPENDENCE ON RENAL DIALYSIS Status: Chronic (8) HTN (hypertension) Code(s): I10 - ESSENTIAL (PRIMARY) HYPERTENSION Status: Chronic Qualifiers: Hypertension type: essential hypertension Qualified Code(s): I10 - Essential (primary) hypertension (9) Macrocytic anemia Code(s): D53.9 - NUTRITIONAL ANEMIA, UNSPECIFIED Status: Chronic Comment: Stable H/H, no evidence of active blood loss (10) Physical deconditioning Code(s): R53.81 - OTHER MALAISE Status: Acute - Plan is on cefepime -: replace potassium per nephrology advice -: deconditioning and poor oral intake -: switch keppra to oral -: PT to mobilize patient as tolerated, ?rehab/swing bed * . Review of Systems - Medications/Allergies Allergies/Adverse Reactions: Allergies Allergy/AdvReac Type Severity Reaction Status Date / Time No Known Allergies Allergy Verified 10/23/17 07:12 Medications: Current Medications Acetaminophen (Tylenol) 650 mg PO Q4H PRN PRN Reason: Headache/Fever or Pain Allopurinol (Zyloprim) 100 mg PO DAILY [facility] Last Admin: 11/02/17 09:15 Dose: 100 mg Atorvastatin Calcium (Lipitor) 20 mg PO HS [facility] Last Admin: 11/01/17 20:17 Dose: Not Given Calcium Carbonate (Tums) 1,000 mg PO Q4H PRN PRN Reason: Heartburn or Indigestion Dextrose/Water (Dextrose 50%) 25 gm SLOW IVP PRN PRN PRN Reason: Hypoglycemia Last Admin: 10/23/17 15:28 Dose: 25 gm Docusate Sodium (Colace) 100 mg PO BID [facility] Last Admin: 11/02/17 09:13 Dose: Not Given Duloxetine HCl (Cymbalta) 30 mg PO DAILY [facility] Last Admin: 11/02/17 09:20 Dose: Not Given Epoetin Francois (Procrit) 10,000 units SC Q7D@1000 [facility] Last Admin: 10/29/17 15:39 Dose: 10,000 units Ferrous Sulfate (Feosol) 325 mg PO BID-[facility] Last Admin: 11/02/17 09:15 Dose: 325 mg Glucagon (Glucagon) 1 mg IM PRN PRN PRN Reason: Hypoglycemia Hydralazine HCl (Apresoline) 10 mg SLOW IVP Q4H PRN PRN Reason: SBP Greater Than 180 Last Admin: 10/27/17 12:12 Dose: 10 mg Dextrose/Water (D5w) 1,000 mls @ 0 mls/hr IV .Q0M PRN; As Directed PRN Reason: Hypoglycemia Cefepime HCl 1 gm/Miscellaneous Medication 1 each/ Sterile Water 10 mls @ 120 mls/hr SLOW IVP 2200 [facility] Last Admin: 11/01/17 21:33 Dose: 10 mls Levetiracetam 500 mg/ Device 100 mls @ 200 mls/hr IVPB BID [facility] Last Admin: 11/02/17 09:32 Dose: 100 mls Insulin Human Regular (Humulin R) 0 units SC .MILD SLIDING SCALE PRN PRN Reason: Mild Correctional Scale Last Admin: 10/27/17 11:12 Dose: 2 unit Insulin Human Regular (Humulin R) 0 units SC .BEDTIME SLIDING SC PRN PRN Reason: Bedtime Correctional Scale Labetalol HCl (Normodyne) 10 mg SLOW IVP Q4H PRN PRN Reason: Systolic BP > 180 Last Admin: 10/31/17 09:09 Dose: 10 mg Miscellaneous Medication (Pharmacy To Dose) 1 each IVPB ONE PRN PRN Reason: Pharmacy to dose Stop: 11/21/17 17:56 Nitroglycerin (Nitrostat) 0.4 mg PO Q5MIN PRN PRN Reason: Chest Pain Ondansetron HCl (Zofran Odt) 4 mg PO Q6H PRN PRN Reason: Nausea/Vomiting Last Admin: 10/31/17 10:41 Dose: 4 mg Ondansetron HCl (Zofran) 4 mg IVP Q6H PRN PRN Reason: Nausea/Vomiting Potassium Chloride (K-Dur) 40 meq PO BID-[facility] Stop: 11/04/17 08:01 Rifampin (Rifadin) 300 mg PO 1000,2200 [facility] Last Admin: 11/02/17 09:20 Dose: Not Given Senna (Senokot) 2 tab PO HSPRN PRN PRN Reason: Constipation Sevelamer Carbonate (Renvela) 1,600 mg PO TID-[facility] Last Admin: 11/02/17 11:13 Dose: Not Given Sodium Chloride (Flush - Normal Saline) 10 ml IVF Q12HR [facility] Last Admin: 11/02/17 09:32 Dose: 10 ml Sodium Chloride (Flush - Normal Saline) 10 ml IVF PRN PRN PRN Reason: Saline Flush Last Admin: 10/27/17 22:24 Dose: 10 ml Vitamin B Complex/Vit C/Folic Acid (Nephro-Kwan Tablet) 1 tab PO DAILY [facility] Last Admin: 11/02/17 09:20 Dose: Not Given
[2017-11-02] MEDS: Potassium Chloride 20 MEQ TAB PO SCH (17:22)
[2017-11-02] MEDS ORDERED: Diabetic Tussin 200 MG/10 ML UDCUP PO PRN (20:26)
[2017-11-02] MEDS: levETIRAcetam 500 MG TAB PO SCH (21:27)
[2017-11-02] MEDS: Atorvastatin Calcium 20 MG TAB PO SCH (21:27)
[2017-11-02] MEDS: Cefepime 1 GM, Admixture Fee 1 EACH in Sterile Water 10 ML SLOW IVP SCH (21:34)
[2017-11-03 05:49] LABS: Anion Gap 11 mmol/L (10-20); BUN (Urea Nitrogen) 23 mg/dL (9.8-20.1); Calc. Creatinine Clearance 11 mL/min (70-130); Calcium 8.5 mg/dL (7.8-10.44); Carbon Dioxide 26 mmol/L (23-31); Chloride 103 mmol/L (98-107); Estimated GFR-MDRD 6; Magnesium 1.8 mg/dL (1.6-2.6)
[2017-11-03 06:03] LABS: #Basophils 0.1 thou/uL (0.0-0.2); #Eosinphils 0.3 thou/uL (0.0-0.7); #Lymphocytes 0.8 thou/uL (1.20-3.40); #Monocytes 0.7 thou/uL (0.11-0.59); #Neutrophils 4.9 thou/uL (1.40-6.50); %Basophils 0.9 % (0.0-1.0); %Eosinophils 4.4 % (0.0-10.0); %Lymphocytes 11.6 % (21.0-51.0); %Monocytes 9.7 % (0.0-10.0); Hematocrit 22.7 % (36.0-47.0); Mean Platelet Volume 5.9 fL (7.4-10.4); Red Blood Cell (RBC) Count 2.08 mill/uL (4.20-5.40); White Blood Cell (WBC) Count 6.7 thou/uL (4.8-10.8)
[2017-11-03 06:21] LABS: ALT (SGPT) 23 U/L (8-55); AST (SGOT) 24 U/L (5-34); Alkaline Phosphatase 100 U/L (40-150); Anion Gap 13 mmol/L (10-20); BUN (Urea Nitrogen) 24 mg/dL (9.8-20.1); Bilirubin, Total 0.2 mg/dL (0.2-1.2); Calc. Creatinine Clearance 10 mL/min (70-130); Calcium 8.5 mg/dL (7.8-10.44); Carbon Dioxide 25 mmol/L (23-31); Chloride 103 mmol/L (98-107); Estimated GFR-MDRD 6; Globulin 2.6 g/dL (2.4-3.5); Protein, Total 4.6 g/dL (6.0-8.3)
[2017-11-03] MEDS: Potassium Chloride 20 MEQ TAB PO SCH ×2 (08:36→17:27)
[2017-11-03] MEDS: Allopurinol 100 MG TAB PO SCH (08:37)
[2017-11-03] MEDS: Sevelamer Carbonate 800 MG TAB PO SCH ×4 (08:37→17:27)
[2017-11-03] MEDS: Folic Acid/Vit B Comp W-C PO SCH (08:37)
[2017-11-03] MEDS: Docusate 100 MG CAP PO SCH ×3 (08:37→20:52)
[2017-11-03] MEDS: levETIRAcetam 500 MG TAB PO SCH ×3 (08:37→20:52)
[2017-11-03] MEDS: Ferrous Sulfate 325 MG TAB PO SCH ×3 (08:38→17:28)
[2017-11-03] MEDS: Rifampin 300 MG CAP PO SCH ×2 (08:38→20:53)
--- NOTE | 2017-11-03 11:47 | PRG ---
DATE OF SERVICE: 11/03/2017 SUBJECTIVE: This 67-year-old female being seen for end-stage renal disease. The patient denies any nausea, vomiting or chest pain. PHYSICAL EXAMINATION: GENERAL: Patient is awake, alert. VITAL SIGNS: Afebrile, pulse 94, breathing at 16, blood pressure 162/89. OBJECTIVE: See above. Awake, alert, in no acute distress. GENERAL APPEARANCE AND MENTAL STATUS: Fair. HEAD/NECK: Normocephalic. Atraumatic. EYES: EOMI. No deformity. EARS: Clear. No ulcers. NOSE: Intact. No lesions. MOUTH: Clear. No discharge. THROAT: Clear. No exudate. LUNGS: Clear. No crackles. CARDIAC: S1, S2. No rub. ABDOMEN: Benign. BS+. GENITALIA/RECTUM: Rai absent. BACK/EXTREMITIES: Edema 0+ Ulcer- NEUROLOGICAL: Alert and motor intact. SKIN: Rash- Bruise- LYMPHATICS: Edema- Ulcer- LABORATORY: Hemoglobin 7.4. ASSESSMENT: 1. Stage 6 chronic kidney disease. Continue PD 2. Hypertension, stable. 3. Anemia. Patient is Hinduism. Continue Epogen. 4. Medication based on glomerular filtration rate are appropriate. MTDD
--- NOTE | 2017-11-03 12:47 | PDOC.PN ---
- Subjective Encounter Start Date: 11/03/17 Encounter Start Time: 12:00 Subjective: no sob, follows verbal stimuli -: not fully oriented -: can move all extremities, but is a bit stiff and does it very slowly - Objective Resuscitation Status: Resuscitation Status DNR:Do Not Resuscitate MAR Reviewed: Yes Vital Signs & Weight: Vital Signs (12 hours) Temp Pulse Resp BP Pulse Ox 11/03/17 11:19 97.9 F 94 20 166/89 H 95 11/03/17 08:00 97.4 F L 99 18 157/79 H 97 11/03/17 03:39 98.4 F 99 18 169/80 H 96 Weight Admit Weight 160 lb 9.6 oz Weight 176 lb 9.444 oz Most Recent Monitor Data Heart Rate from ECG 93 NIBP 131/42 NIBP BP-Mean 75 Respiration from ECG 16 SpO2 97 I&O: 11/02/17 11/03/17 11/04/17 06:59 06:59 06:59 Intake Total 540 630 100 Output Total 300 400 Balance 240 230 100 Result Diagrams: 11/03/17 05:13 11/03/17 05:13 Additional Labs: Accuchecks 11/03/17 11/03/17 11/02/17 11:21 04:21 19:21 POC Glucose 138 H 132 H 114 H 11/02/17 15:59 POC Glucose 82 Phys Exam - Physical Examination HEENT: PERRLA, sclera anicteric Neck: no JVD, supple Respiratory: no wheezing, no rales Cardiovascular: RRR, no significant murmur Gastrointestinal: soft, non-tender, no distention, positive bowel sounds PD cath+ Musculoskeletal: pulses present, edema present Neurological: non-focal, moves all 4 limbs Dx/Plan (1) Peritonitis associated with peritoneal dialysis Status: Acute Qualifiers: Encounter type: subsequent encounter Qualified Code(s): T85.71XD - Infection and inflammatory reaction due to peritoneal dialysis catheter, subsequent encounter (2) Acute metabolic encephalopathy Code(s): G93.41 - METABOLIC ENCEPHALOPATHY Status: Acute Comment: resolving (3) Hypokalemia Code(s): E87.6 - HYPOKALEMIA Status: Acute Comment: KCL replacement per nephrogy advice (4) UTI (urinary tract infection) due to Enterococcus Code(s): N39.0 - URINARY TRACT INFECTION, SITE NOT SPECIFIED; B95.2 - ENTEROCOCCUS THE CAUSE OF DISEASES CLASSIFIED ELSEWHERE Status: Acute Comment: likely colonized? (5) DM2 (diabetes mellitus, type 2) Status: Chronic Qualifiers: Diabetes mellitus complication status: with kidney complications Diabetes mellitus complication detail: with chronic kidney disease Diabetes mellitus termite control servicer insulin use: without residential use Chronic kidney disease stage: on chronic dialysis Qualified Code(s): E11.22 - Type 2 diabetes mellitus with diabetic chronic kidney disease; N18.6 - End stage renal disease; N18.6 - End stage renal disease; N18.6 - End stage renal disease; N18.6 - End stage renal disease; Z99.2 - Dependence on renal dialysis; Z99.2 - Dependence on renal dialysis; Z99.2 - Dependence on renal dialysis; Z99.2 - Dependence on renal dialysis (6) Dyslipidemia Code(s): E78.5 - HYPERLIPIDEMIA, UNSPECIFIED Status: Chronic (7) ESRD on peritoneal dialysis Code(s): N18.6 - END STAGE RENAL DISEASE; Z99.2 - DEPENDENCE ON RENAL DIALYSIS Status: Chronic (8) HTN (hypertension) Code(s): I10 - ESSENTIAL (PRIMARY) HYPERTENSION Status: Chronic Qualifiers: Hypertension type: essential hypertension Qualified Code(s): I10 - Essential (primary) hypertension (9) Macrocytic anemia Code(s): D53.9 - NUTRITIONAL ANEMIA, UNSPECIFIED Status: Chronic Comment: Stable H/H, no evidence of active blood loss (10) Physical deconditioning Code(s): R53.81 - OTHER MALAISE Status: Acute - Plan is on cefepime and rifampin per advice -: d/w , will likely be switched to HD if pt and agree -: will need placement either rehab/swing -: she was amb per 2 weeks back -: blood draws only with HD, Jehovas witness with current Hb of 7 * . echo for lv function, bnp is 1278 alb is low at 2, encourage po intake, nepro tid, dietary consultation Review of Systems - Medications/Allergies Allergies/Adverse Reactions: Allergies Allergy/AdvReac Type Severity Reaction Status Date / Time No Known Allergies Allergy Verified 10/23/17 07:12 Medications: Current Medications Acetaminophen (Tylenol) 650 mg PO Q4H PRN PRN Reason: Headache/Fever or Pain Allopurinol (Zyloprim) 100 mg PO DAILY [facility] Last Admin: 11/03/17 08:37 Dose: Not Given Atorvastatin Calcium (Lipitor) 20 mg PO HS [facility] Last Admin: 11/02/17 21:27 Dose: 20 mg Calcium Carbonate (Tums) 1,000 mg PO Q4H PRN PRN Reason: Heartburn or Indigestion Dextrose/Water (Dextrose 50%) 25 gm SLOW IVP PRN PRN PRN Reason: Hypoglycemia Last Admin: 10/23/17 15:28 Dose: 25 gm Docusate Sodium (Colace) 100 mg PO BID [facility] Last Admin: 11/03/17 09:01 Dose: 100 mg Duloxetine HCl (Cymbalta) 30 mg PO DAILY [facility] Last Admin: 11/03/17 09:01 Dose: 30 mg Epoetin Francois (Procrit) 10,000 units SC Q7D@1000 [facility] Last Admin: 10/29/17 15:39 Dose: 10,000 units Ferrous Sulfate (Feosol) 325 mg PO BID-[facility] Last Admin: 11/03/17 09:00 Dose: 325 mg Glucagon (Glucagon) 1 mg IM PRN PRN PRN Reason: Hypoglycemia Guaifenesin (Robitussin Sf) 100 mg PO Q4H PRN PRN Reason: Cough Last Admin: 11/02/17 21:27 Dose: 100 mg Hydralazine HCl (Apresoline) 10 mg SLOW IVP Q4H PRN PRN Reason: SBP Greater Than 180 Last Admin: 10/27/17 12:12 Dose: 10 mg Dextrose/Water (D5w) 1,000 mls @ 0 mls/hr IV .Q0M PRN; As Directed PRN Reason: Hypoglycemia Cefepime HCl 1 gm/Miscellaneous Medication 1 each/ Sterile Water 10 mls @ 120 mls/hr SLOW IVP 2200 [facility] Last Admin: 11/02/17 21:34 Dose: 10 mls Insulin Human Regular (Humulin R) 0 units SC .MILD SLIDING SCALE PRN PRN Reason: Mild Correctional Scale Last Admin: 10/27/17 11:12 Dose: 2 unit Insulin Human Regular (Humulin R) 0 units SC .BEDTIME SLIDING SC PRN PRN Reason: Bedtime Correctional Scale Labetalol HCl (Normodyne) 10 mg SLOW IVP Q4H PRN PRN Reason: Systolic BP > 180 Last Admin: 10/31/17 09:09 Dose: 10 mg Levetiracetam (Keppra) 500 mg PO BID [facility] Last Admin: 11/03/17 09:04 Dose: 500 mg Miscellaneous Medication (Pharmacy To Dose) 1 each IVPB ONE PRN PRN Reason: Pharmacy to dose Stop: 11/21/17 17:56 Nitroglycerin (Nitrostat) 0.4 mg PO Q5MIN PRN PRN Reason: Chest Pain Ondansetron HCl (Zofran Odt) 4 mg PO Q6H PRN PRN Reason: Nausea/Vomiting Last Admin: 10/31/17 10:41 Dose: 4 mg Ondansetron HCl (Zofran) 4 mg IVP Q6H PRN PRN Reason: Nausea/Vomiting Potassium Chloride (K-Dur) 40 meq PO BID-[facility] Stop: 11/04/17 08:01 Last Admin: 11/03/17 08:36 Dose: 40 meq Rifampin (Rifadin) 300 mg PO 1000,2200 [facility] Last Admin: 11/03/17 08:38 Dose: Not Given Senna (Senokot) 2 tab PO HSPRN PRN PRN Reason: Constipation Sevelamer Carbonate (Renvela) 1,600 mg PO TID-[facility] Last Admin: 11/03/17 12:32 Dose: 1,600 mg Sodium Chloride (Flush - Normal Saline) 10 ml IVF Q12HR [facility] Last Admin: 11/03/17 08:38 Dose: 10 ml Sodium Chloride (Flush - Normal Saline) 10 ml IVF PRN PRN PRN Reason: Saline Flush Last Admin: 10/27/17 22:24 Dose: 10 ml Vitamin B Complex/Vit C/Folic Acid (Nephro-Kwan Tablet) 1 tab PO DAILY [facility] Last Admin: 11/03/17 08:37 Dose: Not Given
--- NOTE | 2017-11-03 17:49 | MRI ---
BRAIN MRI WITHOUT CONTRAST: Date: 11/03/17 COMPARISON: None. HISTORY: Altered mental status, drowsiness, possible stroke. TECHNIQUE: Multiplanar, multisequence MR imaging of the brain is obtained without contrast. FINDINGS: The diffusion-weighted imaging demonstrates no evidence for acute infarction within the brainstem or cerebellum. Two-three subcentimeter foci of increased signal intensity noted on the diffusion-weighte d imaging within the left frontal lobe measuring up to 9.0 mm, suggesting small areas of acute infarc tion. There may be a subtle area of cortically based restricted diffusion within the left parietal lo be measuring 7.0 mm, suggesting an additional area of acute infarction. On the diffusion-weighted sequence, there is a confluent area of increased signal intensity within th e right frontal region, primarily on the basis of T2 shine-through associated with a prior infarction . There may be an additional acute area of infarction immediately adjacent to this measuring in the 8 -9 mm range. The gradient echo imaging demonstrates a small focus of blooming artifact within the frontal lobe on the right measuring 8-9 mm, in the region of above described encephalomalacia, likely on the basis of remote hemorrhage. No additional areas of hemorrhage are suspected on the gradient echo imaging. There is polypoid mucosal thickening involving the left maxillary sinus. There is periventricular deep and subcortical white matter T2/FLAIR hyperintensity, evidence of small vessel disease. Focal area of encephalomalacia noted in right frontal lobe. IMPRESSION: 1. Findings suggesting small bilateral acute infarctions, left more numerous than right. 2. Small vessel disease. 3. Encephalomalacia within right frontal lobe suggests prior infarction. The lack of contrast media limits assessment. However, the patient's GFR is only 6. Thus, recommend f ollow-up brain MRI in 4-6 weeks to document resolution of the above described acute findings. CODE T. POS: [facility]
[2017-11-03] MEDS: Atorvastatin Calcium 20 MG TAB PO SCH (20:52)
[2017-11-03] MEDS: Cefepime 1 GM, Admixture Fee 1 EACH in Sterile Water 10 ML SLOW IVP SCH (23:24)
[2017-11-04 06:18] LABS: #Eosinphils 0.2 thou/uL (0.0-0.7); #Lymphocytes 0.7 thou/uL (1.20-3.40); #Monocytes 0.7 thou/uL (0.11-0.59); #Neutrophils 5.5 thou/uL (1.40-6.50); %Basophils 0.6 % (0.0-1.0); %Eosinophils 3.4 % (0.0-10.0); %Lymphocytes 10.1 % (21.0-51.0); %Monocytes 9.1 % (0.0-10.0); Hematocrit 24.6 % (36.0-47.0); Mean Platelet Volume 6.2 fL (7.4-10.4); Red Blood Cell (RBC) Count 2.22 mill/uL (4.20-5.40); White Blood Cell (WBC) Count 7.2 thou/uL (4.8-10.8)
[2017-11-04] MEDS: levETIRAcetam 500 MG TAB PO SCH ×2 (10:14→20:47)
[2017-11-04] MEDS: Ferrous Sulfate 325 MG TAB PO SCH ×2 (10:14→17:33)
[2017-11-04] MEDS: Potassium Chloride 20 MEQ TAB PO SCH (10:15)
[2017-11-04] MEDS: Rifampin 300 MG CAP PO SCH ×2 (10:15→21:14)
[2017-11-04] MEDS: Folic Acid/Vit B Comp W-C PO SCH (10:16)
[2017-11-04] MEDS: Docusate 100 MG CAP PO SCH ×2 (10:16→20:47)
[2017-11-04] MEDS: Sevelamer Carbonate 800 MG TAB PO SCH ×3 (10:16→17:33)
[2017-11-04] MEDS: Allopurinol 100 MG TAB PO SCH (10:16)
--- NOTE | 2017-11-04 11:04 | PDOC.PN ---
- Subjective Encounter Start Date: 11/04/17 Encounter Start Time: 08:30 Subjective: lethargic, responds to verbal stimuli -: is not oriented this morning but responds to verbal questions -: not in distress - Objective Resuscitation Status: Resuscitation Status DNR:Do Not Resuscitate MAR Reviewed: Yes Vital Signs & Weight: Vital Signs (12 hours) Temp Pulse Resp BP Pulse Ox 11/04/17 08:00 97.8 F 92 20 152/85 H 98 11/04/17 04:00 98.1 F 102 H 18 148/97 H 96 11/04/17 00:00 98.3 F 104 H 20 164/79 H 96 Weight Admit Weight 160 lb 9.6 oz Weight 166 lb 7.184 oz Most Recent Monitor Data Heart Rate from ECG 93 NIBP 131/42 NIBP BP-Mean 75 Respiration from ECG 16 SpO2 97 I&O: 11/03/17 11/04/17 11/05/17 06:59 06:59 06:59 Intake Total 630 540 Output Total 400 250 Balance 230 290 Result Diagrams: 11/04/17 04:56 11/03/17 05:13 Additional Labs: Accuchecks 11/04/17 11/03/17 11/03/17 04:44 19:52 17:04 POC Glucose 136 H 98 98 11/03/17 11:21 POC Glucose 138 H Phys Exam - Physical Examination HEENT: PERRLA, sclera anicteric Neck: no JVD, supple Respiratory: no wheezing, no rales Cardiovascular: RRR, no significant murmur Gastrointestinal: soft, non-tender, positive bowel sounds Musculoskeletal: pulses present, edema present Neurological: non-focal, moves all 4 limbs Dx/Plan (1) Peritonitis associated with peritoneal dialysis Status: Acute Qualifiers: Encounter type: subsequent encounter Qualified Code(s): T85.71XD - Infection and inflammatory reaction due to peritoneal dialysis catheter, subsequent encounter (2) Acute metabolic encephalopathy Code(s): G93.41 - METABOLIC ENCEPHALOPATHY Status: Acute Comment: resolving (3) Hypokalemia Code(s): E87.6 - HYPOKALEMIA Status: Acute Comment: KCL replacement per nephrogy advice (4) UTI (urinary tract infection) due to Enterococcus Code(s): N39.0 - URINARY TRACT INFECTION, SITE NOT SPECIFIED; B95.2 - ENTEROCOCCUS THE CAUSE OF DISEASES CLASSIFIED ELSEWHERE Status: Acute Comment: likely colonized? (5) DM2 (diabetes mellitus, type 2) Status: Chronic Qualifiers: Diabetes mellitus complication status: with kidney complications Diabetes mellitus complication detail: with chronic kidney disease Diabetes mellitus terminal press operator insulin use: without fci use Chronic kidney disease stage: on chronic dialysis Qualified Code(s): E11.22 - Type 2 diabetes mellitus with diabetic chronic kidney disease; N18.6 - End stage renal disease; N18.6 - End stage renal disease; N18.6 - End stage renal disease; N18.6 - End stage renal disease; Z99.2 - Dependence on renal dialysis; Z99.2 - Dependence on renal dialysis; Z99.2 - Dependence on renal dialysis; Z99.2 - Dependence on renal dialysis (6) Dyslipidemia Code(s): E78.5 - HYPERLIPIDEMIA, UNSPECIFIED Status: Chronic (7) ESRD on peritoneal dialysis Code(s): N18.6 - END STAGE RENAL DISEASE; Z99.2 - DEPENDENCE ON RENAL DIALYSIS Status: Chronic (8) HTN (hypertension) Code(s): I10 - ESSENTIAL (PRIMARY) HYPERTENSION Status: Chronic Qualifiers: Hypertension type: essential hypertension Qualified Code(s): I10 - Essential (primary) hypertension (9) Macrocytic anemia Code(s): D53.9 - NUTRITIONAL ANEMIA, UNSPECIFIED Status: Chronic Comment: Stable H/H, no evidence of active blood loss (10) Physical deconditioning Code(s): R53.81 - OTHER MALAISE Status: Acute - Plan has severe deconditioning -: needs aggresive PT to mobilize more -: await echo results, dagmar for seizure -: 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 Review of Systems - Medications/Allergies Allergies/Adverse Reactions: Allergies Allergy/AdvReac Type Severity Reaction Status Date / Time No Known Allergies Allergy Verified 10/23/17 07:12 Medications: Current Medications Acetaminophen (Tylenol) 650 mg PO Q4H PRN PRN Reason: Headache/Fever or Pain Allopurinol (Zyloprim) 100 mg PO DAILY [facility] Last Admin: 11/04/17 10:16 Dose: 100 mg Atorvastatin Calcium (Lipitor) 20 mg PO HS [facility] Last Admin: 11/03/17 20:52 Dose: Not Given Calcium Carbonate (Tums) 1,000 mg PO Q4H PRN PRN Reason: Heartburn or Indigestion Dextrose/Water (Dextrose 50%) 25 gm SLOW IVP PRN PRN PRN Reason: Hypoglycemia Last Admin: 10/23/17 15:28 Dose: 25 gm Docusate Sodium (Colace) 100 mg PO BID [facility] Last Admin: 11/04/17 10:16 Dose: 100 mg Duloxetine HCl (Cymbalta) 30 mg PO DAILY [facility] Last Admin: 11/04/17 10:14 Dose: 30 mg Epoetin Francois (Procrit) 10,000 units SC Q7D@1000 [facility] Last Admin: 10/29/17 15:39 Dose: 10,000 units Ferrous Sulfate (Feosol) 325 mg PO BID[facility] Last Admin: 11/04/17 10:14 Dose: 325 mg Glucagon (Glucagon) 1 mg IM PRN PRN PRN Reason: Hypoglycemia Guaifenesin (Robitussin Sf) 100 mg PO Q4H PRN PRN Reason: Cough Last Admin: 11/02/17 21:27 Dose: 100 mg Hydralazine HCl (Apresoline) 10 mg SLOW IVP Q4H PRN PRN Reason: SBP Greater Than 180 Last Admin: 10/27/17 12:12 Dose: 10 mg Dextrose/Water (D5w) 1,000 mls @ 0 mls/hr IV .Q0M PRN; As Directed PRN Reason: Hypoglycemia Cefepime HCl 1 gm/Miscellaneous Medication 1 each/ Sterile Water 10 mls @ 120 mls/hr SLOW IVP 2200 [facility] Last Admin: 11/03/17 23:24 Dose: 10 mls Insulin Human Regular (Humulin R) 0 units SC .MILD SLIDING SCALE PRN PRN Reason: Mild Correctional Scale Last Admin: 10/27/17 11:12 Dose: 2 unit Insulin Human Regular (Humulin R) 0 units SC .BEDTIME SLIDING SC PRN PRN Reason: Bedtime Correctional Scale Labetalol HCl (Normodyne) 10 mg SLOW IVP Q4H PRN PRN Reason: Systolic BP > 180 Last Admin: 10/31/17 09:09 Dose: 10 mg Levetiracetam (Keppra) 500 mg PO BID [facility] Last Admin: 11/04/17 10:14 Dose: 500 mg Miscellaneous Medication (Pharmacy To Dose) 1 each IVPB ONE PRN PRN Reason: Pharmacy to dose Stop: 11/21/17 17:56 Nitroglycerin (Nitrostat) 0.4 mg PO Q5MIN PRN PRN Reason: Chest Pain Ondansetron HCl (Zofran Odt) 4 mg PO Q6H PRN PRN Reason: Nausea/Vomiting Last Admin: 10/31/17 10:41 Dose: 4 mg Ondansetron HCl (Zofran) 4 mg IVP Q6H PRN PRN Reason: Nausea/Vomiting Rifampin (Rifadin) 300 mg PO 1000,2200 [facility] Last Admin: 11/04/17 10:15 Dose: 300 mg Senna (Senokot) 2 tab PO HSPRN PRN PRN Reason: Constipation Sevelamer Carbonate (Renvela) 1,600 mg PO TID-WM [facility] Last Admin: 11/04/17 10:16 Dose: 1,600 mg Sodium Chloride (Flush - Normal Saline) 10 ml IVF Q12HR [facility] Last Admin: 11/04/17 10:17 Dose: 10 ml Sodium Chloride (Flush - Normal Saline) 10 ml IVF PRN PRN PRN Reason: Saline Flush Last Admin: 10/27/17 22:24 Dose: 10 ml Vitamin B Complex/Vit C/Folic Acid (Nephro-Kwan Tablet) 1 tab PO DAILY [facility] Last Admin: 11/04/17 10:16 Dose: 1 tab
--- NOTE | 2017-11-04 11:44 | PRG ---
DATE OF SERVICE: 11/04/2017 SUBJECTIVE: This is a 67-year-old female being seen for peritoneal dialysis. The patient denies any nausea, vomiting or chest pain. PHYSICAL EXAMINATION: GENERAL: Patient is awake, alert. VITAL SIGNS: Afebrile, pulse 92, breathing at 16, blood pressure 150/85. OBJECTIVE: See above. Awake, alert, in no acute distress. GENERAL APPEARANCE AND MENTAL STATUS: Fair. HEAD/NECK: Normocephalic. Atraumatic. EYES: EOMI. No deformity. EARS: Clear. No ulcers. NOSE: Intact. No lesions. MOUTH: Clear. No discharge. THROAT: Clear. No exudate. LUNGS: Clear. No crackles. CARDIAC: S1, S2. No rub. ABDOMEN: Benign. BS+. GENITALIA/RECTUM: Rai absent. BACK/EXTREMITIES: Edema 0+ Ulcer- NEUROLOGICAL: Alert and motor intact. SKIN: Rash- Bruise- LYMPHATICS: Edema- Ulcer- LABORATORY: Hemoglobin 7.8. ASSESSMENT AND RECOMMENDATIONS: 1. Stage 6 chronic kidney disease. Continue peritoneal dialysis. 2. Hypertension, stable. 3. Anemia, refused transfusion. 4. Hypokalemia. Recommend 40 mEq potassium 1 dose. 5. Hypertension, stable.
[2017-11-04] MEDS: Atorvastatin Calcium 20 MG TAB PO SCH (20:47)
[2017-11-04] MEDS: Megestrol Acetate 40 MG TAB PO SCH (20:47)
[2017-11-04] MEDS: Cefepime 1 GM, Admixture Fee 1 EACH in Sterile Water 10 ML SLOW IVP SCH (21:14)
[2017-11-05 05:58] LABS: #Eosinphils 0.2 thou/uL (0.0-0.7); #Lymphocytes 0.9 thou/uL (1.20-3.40); #Monocytes 0.5 thou/uL (0.11-0.59); #Neutrophils 3.5 thou/uL (1.40-6.50); %Basophils 0.8 % (0.0-1.0); %Eosinophils 3.7 % (0.0-10.0); %Lymphocytes 16.9 % (21.0-51.0); %Monocytes 10.4 % (0.0-10.0); Hematocrit 24.1 % (36.0-47.0); Red Blood Cell (RBC) Count 2.16 mill/uL (4.20-5.40); White Blood Cell (WBC) Count 5.2 thou/uL (4.8-10.8)
[2017-11-05 06:14] LABS: ALT (SGPT) 17 U/L (8-55); AST (SGOT) 19 U/L (5-34); Alkaline Phosphatase 95 U/L (40-150); Anion Gap 12 mmol/L (10-20); BUN (Urea Nitrogen) 21 mg/dL (9.8-20.1); Bilirubin, Total 0.3 mg/dL (0.2-1.2); Calc. Creatinine Clearance 10 mL/min (70-130); Calcium 8.7 mg/dL (7.8-10.44); Carbon Dioxide 27 mmol/L (23-31); Chloride 103 mmol/L (98-107); Estimated GFR-MDRD 6; Globulin 2.6 g/dL (2.4-3.5); Protein, Total 4.6 g/dL (6.0-8.3)
[2017-11-05] MEDS: Megestrol Acetate 40 MG TAB PO SCH ×2 (09:23→21:20)
[2017-11-05] MEDS: Allopurinol 100 MG TAB PO SCH (09:23)
[2017-11-05] MEDS: Docusate 100 MG CAP PO SCH ×2 (09:23→21:19)
[2017-11-05] MEDS: Sevelamer Carbonate 800 MG TAB PO SCH ×3 (09:23→18:20)
[2017-11-05] MEDS: Folic Acid/Vit B Comp W-C PO SCH (09:23)
[2017-11-05] MEDS: Ferrous Sulfate 325 MG TAB PO SCH ×2 (09:23→18:19)
[2017-11-05] MEDS: levETIRAcetam 500 MG TAB PO SCH ×2 (09:23→21:20)
[2017-11-05] MEDS: Rifampin 300 MG CAP PO SCH ×2 (09:24→21:20)
--- NOTE | 2017-11-05 12:18 | PRG ---
DATE OF SERVICE: 11/03/2017 SUBJECTIVE: This is a 67-year-old female being seen for end-stage renal disease. The patient cannot give any history and is somnolent. PHYSICAL EXAMINATION: GENERAL: Patient is resting well. VITAL SIGNS: Afebrile, pulse 91, breathing at 16, blood pressure was 155/71. HEAD/NECK: Normocephalic. Atraumatic. EYES: EOMI. No deformity. EARS: Clear. No ulcers. NOSE: Intact. No lesions. MOUTH: Clear. No discharge. THROAT: Clear. No exudate. LUNGS: Clear. No crackles. CARDIAC: S1, S2. No rub. ABDOMEN: Benign. BS+. GENITALIA/RECTUM: Rai absent. BACK/EXTREMITIES: Edema 0+ Ulcer- NEUROLOGICAL: I cannot answer simple questions and is very somnolent. SKIN: Rash- Bruise- LYMPHATICS: Edema- Ulcer- LABORATORY DATA: Show hemoglobin 7.6, potassium 3.3. ASSESSMENT AND RECOMMENDATIONS: 1. Stage 6 chronic kidney disease. Continue peritoneal dialysis. No family member was available. 2. Hypokalemia. Recommend high potassium diet. 3. Anemia. The patient is [employer]reg[employer], on Epogen. 4. Hypertension, stable. 5. Altered mental status, etiology unclear.
[2017-11-05] MEDS: Epoetin (ESRD) 20,000 UNITS/ML SC SCH (12:58)
--- NOTE | 2017-11-05 13:09 | PDOC.PN ---
- Subjective Encounter Start Date: 11/05/17 Encounter Start Time: 10:00 Subjective: is lethargic, but follows verbal stimuli (needs atleast 2 prompts) -: no sob - Objective Resuscitation Status: Resuscitation Status DNR:Do Not Resuscitate MAR Reviewed: Yes Vital Signs & Weight: Vital Signs (12 hours) Temp Pulse Resp BP Pulse Ox 11/05/17 08:00 97.7 F 91 20 163/82 H 100 11/05/17 04:00 98.4 F 92 20 155/77 H 95 Weight Admit Weight 160 lb 9.6 oz Weight 166 lb 14.239 oz Most Recent Monitor Data Heart Rate from ECG 93 NIBP 131/42 NIBP BP-Mean 75 Respiration from ECG 16 SpO2 97 I&O: 11/04/17 11/05/17 11/06/17 06:59 06:59 06:59 Intake Total 540 140 Output Total 250 150 Balance 290 -10 Result Diagrams: 11/05/17 05:04 11/05/17 05:04 Additional Labs: Accuchecks 11/05/17 11/05/17 11/04/17 11:38 04:38 19:32 POC Glucose 88 136 H 123 H 11/04/17 16:34 POC Glucose 88 Phys Exam - Physical Examination HEENT: PERRLA, moist MMs Neck: no JVD, supple Respiratory: no wheezing, no rales Cardiovascular: RRR, no significant murmur Gastrointestinal: soft, non-tender, positive bowel sounds pd+ Musculoskeletal: pulses present Neurological: non-focal, moves all 4 limbs Dx/Plan (1) Peritonitis associated with peritoneal dialysis Status: Acute Qualifiers: Encounter type: subsequent encounter Qualified Code(s): T85.71XD - Infection and inflammatory reaction due to peritoneal dialysis catheter, subsequent encounter (2) Acute metabolic encephalopathy Code(s): G93.41 - METABOLIC ENCEPHALOPATHY Status: Acute Comment: resolving (3) Hypokalemia Code(s): E87.6 - HYPOKALEMIA Status: Acute Comment: KCL replacement per nephrogy advice (4) DM2 (diabetes mellitus, type 2) Status: Chronic Qualifiers: Diabetes mellitus complication status: with kidney complications Diabetes mellitus complication detail: with chronic kidney disease Diabetes mellitus fpc insulin use: without fpc use Chronic kidney disease stage: on chronic dialysis Qualified Code(s): E11.22 - Type 2 diabetes mellitus with diabetic chronic kidney disease; N18.6 - End stage renal disease; N18.6 - End stage renal disease; N18.6 - End stage renal disease; N18.6 - End stage renal disease; Z99.2 - Dependence on renal dialysis; Z99.2 - Dependence on renal dialysis; Z99.2 - Dependence on renal dialysis; Z99.2 - Dependence on renal dialysis (5) Dyslipidemia Code(s): E78.5 - HYPERLIPIDEMIA, UNSPECIFIED Status: Chronic (6) ESRD on peritoneal dialysis Code(s): N18.6 - END STAGE RENAL DISEASE; Z99.2 - DEPENDENCE ON RENAL DIALYSIS Status: Chronic (7) HTN (hypertension) Code(s): I10 - ESSENTIAL (PRIMARY) HYPERTENSION Status: Chronic Qualifiers: Hypertension type: essential hypertension Qualified Code(s): I10 - Essential (primary) hypertension (8) Macrocytic anemia Code(s): D53.9 - NUTRITIONAL ANEMIA, UNSPECIFIED Status: Chronic Comment: Stable H/H, no evidence of active blood loss (9) Physical deconditioning Code(s): R53.81 - OTHER MALAISE Status: Acute (10) CVA (cerebral vascular accident) Code(s): I63.9 - CEREBRAL INFARCTION, UNSPECIFIED Status: Acute - Plan is on cefempime till 11/12/2017 with rifampin per -: is awaiting rehab placement -: agree with hospice if agrees, has multiple med issues, poor functio -: -nal status, recent cva and encephalopathy -: h/h 06/23, alb is 2.0. * . Review of Systems - Medications/Allergies Allergies/Adverse Reactions: Allergies Allergy/AdvReac Type Severity Reaction Status Date / Time No Known Allergies Allergy Verified 10/23/17 07:12 Medications: Current Medications Acetaminophen (Tylenol) 650 mg PO Q4H PRN PRN Reason: Headache/Fever or Pain Last Admin: 11/04/17 21:13 Dose: 650 mg Allopurinol (Zyloprim) 100 mg PO DAILY [facility] Last Admin: 11/05/17 09:23 Dose: Not Given Atorvastatin Calcium (Lipitor) 20 mg PO HS [facility] Last Admin: 11/04/17 20:47 Dose: 20 mg Calcium Carbonate (Tums) 1,000 mg PO Q4H PRN PRN Reason: Heartburn or Indigestion Dextrose/Water (Dextrose 50%) 25 gm SLOW IVP PRN PRN PRN Reason: Hypoglycemia Last Admin: 10/23/17 15:28 Dose: 25 gm Docusate Sodium (Colace) 100 mg PO BID [facility] Last Admin: 11/05/17 09:23 Dose: Not Given Duloxetine HCl (Cymbalta) 30 mg PO DAILY [facility] Last Admin: 11/05/17 09:23 Dose: Not Given Epoetin Francois (Procrit) 10,000 units SC Q7D@1000 [facility] Last Admin: 11/05/17 12:58 Dose: 10,000 units Ferrous Sulfate (Feosol) 325 mg PO BID-[facility] Last Admin: 11/05/17 09:23 Dose: Not Given Glucagon (Glucagon) 1 mg IM PRN PRN PRN Reason: Hypoglycemia Guaifenesin (Robitussin Sf) 100 mg PO Q4H PRN PRN Reason: Cough Last Admin: 11/02/17 21:27 Dose: 100 mg Hydralazine HCl (Apresoline) 10 mg SLOW IVP Q4H PRN PRN Reason: SBP Greater Than 180 Last Admin: 10/27/17 12:12 Dose: 10 mg Dextrose/Water (D5w) 1,000 mls @ 0 mls/hr IV .Q0M PRN; As Directed PRN Reason: Hypoglycemia Cefepime HCl 1 gm/Miscellaneous Medication 1 each/ Sterile Water 10 mls @ 120 mls/hr SLOW IVP 2200 [facility] Last Admin: 11/04/17 21:14 Dose: 10 mls Insulin Human Regular (Humulin R) 0 units SC .MILD SLIDING SCALE PRN PRN Reason: Mild Correctional Scale Last Admin: 10/27/17 11:12 Dose: 2 unit Insulin Human Regular (Humulin R) 0 units SC .BEDTIME SLIDING SC PRN PRN Reason: Bedtime Correctional Scale Labetalol HCl (Normodyne) 10 mg SLOW IVP Q4H PRN PRN Reason: Systolic BP > 180 Last Admin: 10/31/17 09:09 Dose: 10 mg Levetiracetam (Keppra) 250 mg PO BID [facility] Last Admin: 11/05/17 09:23 Dose: Not Given Megestrol Acetate (Megace) 40 mg PO BID [facility] Last Admin: 11/05/17 09:23 Dose: Not Given Miscellaneous Medication (Pharmacy To Dose) 1 each IVPB ONE PRN PRN Reason: Pharmacy to dose Stop: 11/21/17 17:56 Nitroglycerin (Nitrostat) 0.4 mg PO Q5MIN PRN PRN Reason: Chest Pain Ondansetron HCl (Zofran Odt) 4 mg PO Q6H PRN PRN Reason: Nausea/Vomiting Last Admin: 10/31/17 10:41 Dose: 4 mg Ondansetron HCl (Zofran) 4 mg IVP Q6H PRN PRN Reason: Nausea/Vomiting Rifampin (Rifadin) 300 mg PO 1000,2200 [facility] Last Admin: 11/05/17 09:24 Dose: Not Given Senna (Senokot) 2 tab PO HSPRN PRN PRN Reason: Constipation Sevelamer Carbonate (Renvela) 1,600 mg PO TID-WM [facility] Last Admin: 11/05/17 12:59 Dose: Not Given Sodium Chloride (Flush - Normal Saline) 10 ml IVF Q12HR [facility] Last Admin: 11/05/17 09:25 Dose: 10 ml Sodium Chloride (Flush - Normal Saline) 10 ml IVF PRN PRN PRN Reason: Saline Flush Last Admin: 10/27/17 22:24 Dose: 10 ml Vitamin B Complex/Vit C/Folic Acid (Nephro-Kwan Tablet) 1 tab PO DAILY [facility] Last Admin: 11/05/17 09:23 Dose: Not Given
[2017-11-05 14:49] VITALS: BMI 26.9
[2017-11-05] MEDS: Atorvastatin Calcium 20 MG TAB PO SCH (21:19)
[2017-11-05] MEDS: Cefepime 1 GM, Admixture Fee 1 EACH in Sterile Water 10 ML SLOW IVP SCH (21:22)
[2017-11-06 08:51] VITALS: BP 163/71; TEMP 98.7
[2017-11-06] MEDS: Rifampin 300 MG CAP PO SCH (09:26)
[2017-11-06] MEDS: Ferrous Sulfate 325 MG TAB PO SCH (09:26)
[2017-11-06] MEDS: Allopurinol 100 MG TAB PO SCH (09:27)
[2017-11-06] MEDS: Megestrol Acetate 40 MG TAB PO SCH (09:27)
[2017-11-06] MEDS: levETIRAcetam 500 MG TAB PO SCH (09:27)
[2017-11-06] MEDS: Folic Acid/Vit B Comp W-C PO SCH (09:27)
[2017-11-06] MEDS: Docusate 100 MG CAP PO SCH (09:27)
[2017-11-06] MEDS: Sevelamer Carbonate 800 MG TAB PO SCH (09:36)
--- NOTE | 2017-11-06 13:18 | PDOC.PN ---
- Subjective Encounter Start Date: 11/06/17 Encounter Start Time: 06:45 Subjective: no sob, follows verbal stimuli - Objective Resuscitation Status: Resuscitation Status DNR:Do Not Resuscitate MAR Reviewed: Yes Vital Signs & Weight: Vital Signs (12 hours) Temp Pulse Resp BP Pulse Ox 11/06/17 08:00 98.7 F 98 20 163/71 H 100 Weight Admit Weight 160 lb 9.6 oz Weight 170 lb 11.2 oz Most Recent Monitor Data Heart Rate from ECG 93 NIBP 131/42 NIBP BP-Mean 75 Respiration from ECG 16 SpO2 97 I&O: 11/05/17 11/06/17 11/07/17 06:59 06:59 06:59 Intake Total 140 317 Output Total 150 450 Balance -10 -133 Result Diagrams: 11/05/17 05:04 11/05/17 05:04 Additional Labs: Accuchecks 11/06/17 11/05/17 11/05/17 04:37 19:29 16:25 POC Glucose 108 100 96 Phys Exam - Physical Examination HEENT: PERRLA, sclera anicteric Neck: no JVD, supple Respiratory: no wheezing, no rales Cardiovascular: RRR, no significant murmur Gastrointestinal: soft, non-tender, positive bowel sounds Musculoskeletal: no edema, pulses present Neurological: non-focal, moves all 4 limbs Dx/Plan (1) Peritonitis associated with peritoneal dialysis Status: Acute Qualifiers: Encounter type: subsequent encounter Qualified Code(s): T85.71XD - Infection and inflammatory reaction due to peritoneal dialysis catheter, subsequent encounter (2) Acute metabolic encephalopathy Code(s): G93.41 - METABOLIC ENCEPHALOPATHY Status: Acute Comment: resolving (3) Hypokalemia Code(s): E87.6 - HYPOKALEMIA Status: Acute Comment: KCL replacement per nephrogy advice (4) DM2 (diabetes mellitus, type 2) Status: Chronic Qualifiers: Diabetes mellitus complication status: with kidney complications Diabetes mellitus complication detail: with chronic kidney disease Diabetes mellitus fdc insulin use: without termite exterminator use Chronic kidney disease stage: on chronic dialysis Qualified Code(s): E11.22 - Type 2 diabetes mellitus with diabetic chronic kidney disease; N18.6 - End stage renal disease; N18.6 - End stage renal disease; N18.6 - End stage renal disease; N18.6 - End stage renal disease; Z99.2 - Dependence on renal dialysis; Z99.2 - Dependence on renal dialysis; Z99.2 - Dependence on renal dialysis; Z99.2 - Dependence on renal dialysis (5) Dyslipidemia Code(s): E78.5 - HYPERLIPIDEMIA, UNSPECIFIED Status: Chronic (6) ESRD on peritoneal dialysis Code(s): N18.6 - END STAGE RENAL DISEASE; Z99.2 - DEPENDENCE ON RENAL DIALYSIS Status: Chronic (7) HTN (hypertension) Code(s): I10 - ESSENTIAL (PRIMARY) HYPERTENSION Status: Chronic Qualifiers: Hypertension type: essential hypertension Qualified Code(s): I10 - Essential (primary) hypertension (8) Macrocytic anemia Code(s): D53.9 - NUTRITIONAL ANEMIA, UNSPECIFIED Status: Chronic Comment: Stable H/H, no evidence of active blood loss (9) Physical deconditioning Code(s): R53.81 - OTHER MALAISE Status: Acute (10) CVA (cerebral vascular accident) Code(s): I63.9 - CEREBRAL INFARCTION, UNSPECIFIED Status: Acute Qualifiers: Laterality of affected vessel: bilateral - Plan has been approved for inpt rehab -: will dc shortly to rehab -: to continue cefepime and rifampin per advice -: prognosis guarded * .
--- NOTE | 2017-11-06 14:46 | DIS ---
DATE OF ADMISSION: 10/22/2017 DATE OF DISCHARGE: 11/06/2017 DISCHARGE DISPOSITION: To inpatient rehabilitation. PRIMARY DISCHARGE DIAGNOSES: 1. Peritonitis associated with peritoneal dialysis on cefepime and rifampin. 2. Metabolic encephalopathy, slowly resolving. 3. Bilateral acute cerebrovascular accident in the frontal lobes. 4. Deconditioning. SECONDARY DISCHARGE DIAGNOSES: CHF with systolic dysfunction, Microcytic anemia , hypertension, diabetes mellitus type 2, dyslipidemia, end-stage renal disease on peritoneal dialysis. PROCEDURES DONE DURING HOSPITALIZATION: MRI brain done showed small bilateral acute infarct, left more numerous than right, small vessel disease, encephalomalacia within right frontal lobe suggesting prior to infarct, echo with 2D Doppler showed EF of 30%-35% with diastolic dysfunction as well. Peritoneal fluid culture grew Staph aureus sensitive to cephalosporins. Urine culture grew Enterococcus sensitive to penicillins. DISCHARGE MEDICATIONS: Cefepime for another 6 more days 1 gram daily, rifampin 300 mg twice daily for another 7 days, sevelamer before meals, primidone 50 mg p.o. at bedtime, omega 3 fatty acid 2 capsules twice daily, Megace 40 mg twice daily, Keppra 250 mg twice daily, Nephro-Kwan 1 tablet daily, ferrous sulfate 325 mg twice daily, Cymbalta 30 mg daily, Colace 100 mg twice daily, atorvastatin 20 mg at bedtime, aspirin 81 mg p.o. daily, and allopurinol 100 mg p.o. daily. ALLERGIES: No known drug allergies. INPATIENT CONSULTS: Dr. Subramanian for Nephrology, Dr. Lisa for Infectious Disease, and Dr. Enriquez for Neurology. DISCHARGE PLAN: Patient to follow up with primary care physician in 1 week. BRIEF COURSE DURING HOSPITALIZATION: The patient initially got admitted on the with complaints of nausea, vomiting, and abdominal pain. She has a known history of end-stage renal disease on peritoneal dialysis. The patient had a fever of 102 with sepsis and generalized abdominal pain and was suspected to have acute peritonitis due to peritoneal dialysis catheter. Her dialysate was cloudy as well. A peritoneal fluid grew Staph aureus sensitive to cephalosporins. She has had consultations with Dr. Lisa for Infectious Disease , Dr. Enriquez for Neurology and Dr. Subramanian for Nephrology. The patient had metabolic encephalopathy which got worse and she was ultimately transferred to ICU. She was on IV antibiotics all through her stay. The patient has had subclinical seizure, this was confirmed with EEG as well. Her MRI brain revealed bilateral CVA. There was old infarct in the right frontal lobe as well with encephalomalacia. Echo done showed EF of 30% to 35%. The patient has had slow recovery with severe deconditioning. She is barely gotten out of bed. In view of severe deconditioning, case management consultation was requested. She has been approved for inpatient rehabilitation. The patient is still recovering from encephalopathy due to metabolic issues. She follows verbal stimuli on repeated prompt. She needs to work aggressively with physical therapy. The patient is not motivated and will require family's encouragement to work with physical therapy. A small dose of Coreg will be added to her current home medication list due to poor EF. No NATTY or ARBs due to end-stage renal disease. A total of 35 minutes was spent on discharge plan. Please see a face to face documentation on [facility] for the day of discharge. MTDD
== END 2017-11-06 10:08 | DRG 919 ==
LOC: ERS 13:48 → 2NO 17:14 → CCU 10-26 11:55 → 2NO 10-27 20:38 → T4-B 10-31 15:42
PROVIDERS: ADMIT Internal Medicine; ATTEND Internal Medicine
PROC: 3E1M39Z Irrigation of Peritoneal Cavity using Dialysate, Percutaneous Approach (ICD-10-PCS; principal; 2017-10-22)
DX: T85.71XA Infection and inflammatory reaction due to peritoneal dialysis catheter, initial encounter (principal); K65.0 Generalized (acute) peritonitis; I63.9 Cerebral infarction, unspecified; R65.20 Severe sepsis without septic shock; A41.9 Sepsis, unspecified organism; G93.41 Metabolic encephalopathy; I13.2 Hypertensive heart and chronic kidney disease with heart failure and with stage 5 chronic kidney disease, or end stage renal disease; N18.6 End stage renal disease; E87.2 Acidosis; N39.0 Urinary tract infection, site not specified; I50.20 Unspecified systolic (congestive) heart failure; E11.22 Type 2 diabetes mellitus with diabetic chronic kidney disease; B95.2 Enterococcus as the cause of diseases classified elsewhere; E87.6 Hypokalemia; E78.5 Hyperlipidemia, unspecified; D63.1 Anemia in chronic kidney disease; M19.90 Unspecified osteoarthritis, unspecified site; Z87.442 Personal history of urinary calculi; Z66 Do not resuscitate; Z88.5 Allergy status to narcotic agent; Z88.2 Allergy status to sulfonamides; Z16.21 Resistance to vancomycin; M10.9 Gout, unspecified; Z99.2 Dependence on renal dialysis; R56.9 Unspecified convulsions; B95.61 Methicillin susceptible Staphylococcus aureus infection as the cause of diseases classified elsewhere
CPT/HCPCS: 36415; 36416; 51701; 70450; 70551; 71010; 80048; 80053; 80184; 80188; 80202; 81003; 81015; 82140; 82274; 82533; 82805; 83605; 83735; 83880; 84436; 85014; 85018; 85025; 85049; 85060; 86850; 86900; 86901; 87040; 87070; 87077; 87086; 87147; 87186; 87205; 87340; 89051; 90945; 93306; 94760; 95816; 95819; 96365; A4216; A4353; G0257; G8978-GP-CM; G8978-GP-CN; G8979-GP-CK; G8979-GP-CL; G8987-GO-CL; G8987-GO-CN; G8988-GO-CJ; G8988-GO-CL; G8996-GN-CJ; G8996-GN-CK; G8996-GN-CL; G8997-GN-CI; G8997-GN-CJ; J0360; J0692; J1630; J1644; J1815; J1953; J2020; J3370; J3475; J3480; J7050; Q0162; Q4081; S0179